=== PATIENT | male | born 1985 | race Caucasian/White ===

== ENCOUNTER 2019-06-04 05:37 | Emergency (ER) | payer OTHER, SELFPAY ==
--- NOTE | ~2019-06-04 | CT_ITS ---
EXAMINATION: CT abdomen pelvis wo con DATE: 06/04/2019 08:17 INDICATION: Generalized abdominal pain. TECHNIQUE: Computed tomography (CT) of the abdomen and pelvis was performed without intravenous contr ast. Automated exposure control and iterative reconstruction technique were employed. The dose-length product was 1264.82 mGy-cm. COMPARISON: CT abdomen and pelvis 07/04/2018 FINDINGS: The visualized portions of the lung bases demonstrate mild atelectasis. No pleural effusion . The heart size is normal. No pericardial effusion. There is diffuse hepatic steatosis. There are ch anges of cholecystectomy. The spleen, pancreas, adrenal glands, and kidneys are normal. There is a 7 mm stone at right ureteropelvic junction. There is a small right inguinal hernia containing fat. Ther e are no dilated loops of bowel. There are changes of appendectomy. There are no pathologically enlar ged lymph nodes. There is no free intraperitoneal fluid. There is mild thoracolumbar spondylosis. IMPRESSION: 1. 7 mm stone at right ureteropelvic junction. No hydronephrosis. 2. Diffuse hepatic steatosis. 3. Right inguinal hernia containing fat. Reviewed, dictated and finalized at location A.
--- NOTE | ~2019-06-04 | XR_ITS ---
XR abdomen/kub 1V 06/04/2019 11:08 Indication: Kidney stone. Procedure: KUB Comparison: 09/15/2016 Findings: Bowel gas pattern is nonobstructive pattern. There are cholecystectomy clips. There is a 1 cm right renal stone in the renal pelvis. No acute osseous abnormality. Impression: 1: 1 cm stone right renal pelvis near the expected location of the UPJ. Reviewed, dictated and finalized at location A. Impression: 1: 1 cm stone right renal pelvis near the expected location of the UPJ.
[2019-06-04 05:39] VITALS: BP 184/104; PULSE 68; RESP 18; TEMP 36.2; O2SAT 100
[2019-06-04] MEDS: SODIUM CHLORIDE 0.9% IV 1,000 ML 999 ML IV CONT ×2 (06:05→08:01)
[2019-06-04] MEDS: ONDANSETRON INJ 4 MG/2 ML VIAL IV PUSH (06:05)
--- NOTE | 2019-06-04 06:07 | ED.ABDPAIN ---
HPI - Abdominal Pain General Chief Complaint: Abdominal Pain Stated Complaint: abd pain n/v Time Seen by Provider: 06/04/19 06:01 Source: RN notes reviewed History of Present Illness HPI narrative: Patient presents to emergency department from home for nausea vomiting patient that symptoms began yesterday morning. Patient states numerous episodes of nausea vomiting yesterday. Also notes abdominal pain that is described as cramping and diffuse throughout the abdomen. Patient states he has a history of recurrent nausea and vomiting that is associated with anxiety. He states been unable to keep down his anxiety medicine over the past 24 hours. Denies any fevers or chills cough diarrhea or any other symptoms Related Data Home Medications Medication Instructions Recorded Confirmed clonidine HCl 0.1 mg PO HS 06/04/19 fluoxetine 80 mg PO HS 06/04/19 ranitidine HCl [Acid Corporate Treasurer 150 mg PO DAILY 06/04/19 (ranitidine)] Allergies Allergy/AdvReac Type Severity Reaction Status Date / Time Contrast Media Allergy Intermediate Swelling Uncoded 06/04/19 05:46 Review of Systems Review of Systems: Narrative: Gen.: Denies fevers or chills ENT: Denies congestion Respiratory: Denies shortness of breath or cough CV: Denies chest pain or palpitations GI: See HPI denies burning, urgency, frequency or hematuria Musculoskeletal: Denies back pain or muscle pain Neuro: Denies numbness, tingling, weakness or focal weakness Skin: Denies rash Except as documented, all other systems reviewed and negative [facility] Past Medical History Medical History (Updated 06/04/19 @ 11:54 by James Reyez DO) Anxiety Pancreatitis Social History Social History (Updated 06/04/19 @ 06:09 by James Reyez DO) Smoking status: Never smoker Gender identity (if verbalized by the patient): Male Exam Narrative: Exam Narrative: APPEARANCE: No acute distress, nontoxic, resting in bed HEENT: Normocephalic, atraumatic, OMM RESPIRATORY: No respiratory distress, clear to auscultation bilaterally with no rhonchi wheezing or rales CARDIOVASCULAR: RRR s murmur ABDOMINAL: Soft, nondistended, diffusely tender to palpation, no rebound or guarding MUSCULOSKELETAl: Moves all extremities. No clubbing, cyanosis or edema. NEURO: Awake and alert. Following commands, speech normal, no focal deficits SKIN:: Warm, dry. Normal Color PSYCHIATRIC: Normal affect/mood Course Course Emergency Course: Discussed with Dr. Rebollar presentation work-up. Discussed the kidney stone. At this time with the patient feeling better feels patient will be discharged with follow-up as an office was set up for lithotripsy Patient states that they are feeling much better at this time. States abdominal pain has resolved. Repeat abdominal exam shows the patient's abdomen to be soft and nontender. Discussed with patient results of workup and diagnosis. Discussed need for follow-up with primary care physician, reasons to return to the emergency department in proper use of medication. Patient understands and agrees to current treatment plan Vital Signs Vital signs: Vital Signs Temperature 97.1 F L 06/04/19 05:39 Pulse Rate 68 06/04/19 05:39 Respiratory Rate 18 06/04/19 05:39 Blood Pressure 184/104 H 06/04/19 05:39 Pulse Oximetry 100 06/04/19 05:39 Temperature 97.1 F L 06/04/19 05:39 Pulse Rate 67 06/04/19 09:45 Respiratory Rate 14 06/04/19 09:45 Blood Pressure 176/65 H 06/04/19 09:45 Pulse Oximetry 99 06/04/19 09:45 MDM - Abdominal Pain MDM Narrative Medical decision making narrative: Patient's abdomen is soft without significant pain or signs of surgical abdomen on serial exams. Lab and x-ray evaluations are reviewed and patient is felt to be a reasonable candidate for outpatient management. Patient was instructed as to limitations of x-ray and laboratory evaluation and encouraged to return to ED or primary physician for repeat exam in 12 hour
[2019-06-04 06:14] LABS: Basophils Absolute Auto 0.1 K/mm3 (0.0-0.1); Basophils Percent Auto 0.5 % (0.2-1.2); Eosinophils Absolute Auto 0.2 K/mm3 (0-0.3); Eosinophils Percent Auto 1.3 % (0-4.4); Hematocrit 50.4 % (42.0-52.0); Hemoglobin 17.4 g/dL (14.0-18.0); Immature Granulocyte Absolute 0.18 K/mm3 (0.00-0.031); Immature Granulocyte Percent A 1.2 % (0-0.5); Lymphocytes Absolute Auto 2.25 K/mm3 (0.9-3.2); Lymphocytes Percent Auto 14.7 % (18.3-44.2); Mean Corpuscular HGB Conc 34.5 g/dl (32-36); Mean Corpuscular Hemoglobin 29.8 pg (26-34); Mean Corpuscular Volume 86.3 fl (80-100); Mean Platelet Volume 11.1 fl (7.4-10.4); Monocytes Absolute Auto 0.9 K/mm3 (0.1-0.6); Monocytes Percent Auto 6.1 % (2.6-8.5); Neutrophils Absolute Auto 11.7 K/mm3 (1.3-6.7); Neutrophils Percent Auto 76.2 % (45.5-73.1); Platelet Count Result 217 k/mm3 (150-375); Red Blood Count 5.84 M/mm3 (4.6-6.20); Red Cell Distribution Width 13.4 % (11.5-14.5); White Blood Count 15.3 K/mm3 (4.5-10.0)
[2019-06-04 06:22] LABS: Alanine Aminotransferase 36 U/L (4-50); Albumin Level 4.9 g/dL (3.5-5.1); Alkaline Phosphatase 35 U/L (38-126); Aspartate Amino Transferase 31 U/L (17-59); Bilirubin,Total 0.5 mg/dL (0.2-1.3); Blood Urea Nitrogen 11 mg/dL (9-20); Calcium 9.6 mg/dL (8.4-10.2); Carbon Dioxide 24 mmol/L (22-30); Chloride 101 mmol/L (98-107); Estimated CRCL calculation 111 ml/min; Estimated Glomerular Filt Rate > 60; Glucose 144 mg/dL (75-110); Lipase 147 U/L (23-300); Sodium 137 mmol/L (137-145)
[2019-06-04] MEDS: LORAZEPAM INJ 2 MG/ML VIAL 1 MG IV PUSH (06:22)
[2019-06-04] MEDS: PANTOPRAZOLE SODIUM IV 40 MG VIAL IV PUSH (06:56)
[2019-06-04 07:18] LABS: Add Urine Microscopic? YES; Appearance Urine Clear (Clear); Bacteria Urine Trace /hpf; Bilirubin Urine Negative (Negative); Blood Urine 1+ (Negative); Color Urine Yellow (Yellow); Glucose Urine UA 1+ mg/dL (Negative); Ketones Urine 1+ mg/dL (Negative); Leukocyte Esterase Ur Negative LEU/UL (Negative); Nitrate Urine Negative (Negative); Protein Urine 2+ mg/dL (Negative); RBC Urine >75 /hpf (0-2); Specific Grav Ur 1.018 (1.001-1.035); Squamous Epithelial Cell Urine Rare /hpf (Few); WBC Urine 0-3 /hpf
[2019-06-04] MEDS: HYDROMORPHONE HCL 1 MG/ML INJ 0.5 MG IV PUSH (08:00)
[2019-06-04] MEDS: PROMETHAZINE HCL 25 MG/ML AMPUL 12.5 MG IV PUSH (09:40)
[2019-06-04 09:45] VITALS: BP 176/65; PULSE 67; RESP 14; O2SAT 99
[2019-06-04 12:10] VITALS: BP 155/70; PULSE 68; RESP 16; O2SAT 99
== END 2019-06-04 12:12 | disposition home or self-care (01) ==
PROVIDERS: Emergency Medicine; Emergency Provider Emergency Medicine; PCP Internal Medicine Infectious Disease
DX: R11.2 Nausea with vomiting, unspecified (principal); F41.9 Anxiety disorder, unspecified; R10.9 Unspecified abdominal pain; N20.0 Calculus of kidney; K76.0 Fatty (change of) liver, not elsewhere classified; K44.9 Diaphragmatic hernia without obstruction or gangrene
CPT/HCPCS: 36415; 74018; 74176; 80053; 81001; 83690; 85025; 87086; 96361; 96374; 96375; 99284; C9113; J0131; J1170; J2060; J2405; J2550; J7030

== ENCOUNTER 2020-06-22 21:44 | Observation (INO) | payer OTHER, SELFPAY ==
--- NOTE | ~2020-06-22 | XR_ITS ---
EXAMINATION: XR abdomen/kub 1V INDICATION: Right ureteral stone TECHNIQUE: Supine views of the abdomen were obtained on 2 radiographs. COMPARISON: 06/04/2019 FINDINGS: A 12 mm stone projects at the right ureteropelvic junction at the level of the right L3 tra nsverse process. Cholecystectomy clips are noted. The bowel gas pattern is normal. No additional urol ithiasis is identified. IMPRESSION: 1. 12 mm stone at the right ureteropelvic junction. Reviewed, dictated and finalized at location A.
--- NOTE | ~2020-06-22 | CT_ITS ---
EXAMINATION: CT abdomen pelvis wo con DATE: 06/22/2020 22:17 INDICATION: Epigastric abdominal pain TECHNIQUE: Computed tomography (CT) of the abdomen and pelvis was performed without intravenous contr ast. The dose-length product (DLP) was 06/04/2019 mGy-cm. Automated exposure control and iterative rec onstruction technique were employed. COMPARISON: 06/04/2019 FINDINGS: The lung bases are clear. The heart size is normal. The liver is diffusely low in attenuati on when compared with the spleen, consistent with hepatic steatosis. The gallbladder is surgically ab sent. The spleen, pancreas, and adrenal glands are normal. There is a 12 mm stone at the right ureter opelvic junction. The kidneys are unremarkable. No pathologically enlarged abdominal or pelvic lymph nodes are identified. There is no free intraperitoneal gas or evidence of bowel obstruction. The appe ndix is absent. The right testicle is seen in the distal inguinal canal. There is mild lumbar spondyl osis. IMPRESSION: 1. 12 mm stone at the right ureteropelvic junction. Consider KUB for treatment planning purposes. Reviewed, dictated and finalized at location A.
[2020-06-22 21:47] VITALS: BP 183/114; PULSE 74; RESP 17; TEMP 36.5; O2SAT 100
--- NOTE | 2020-06-22 21:49 | ED.ABDPAIN ---
HPI - Abdominal Pain General Chief Complaint: Abdominal Pain Stated Complaint: abd pain with n/v Time Seen by Provider: 06/22/20 21:49 History of Present Illness HPI narrative: Sharp epigastric pain since this morning. Sometimes radiates to the back. Associates with vomiting. He has had similar pain in the past which was attributed to anxiety. No diarrhea, constipation, fever, chest pain, SOB. Related Data Home Medications Medication Instructions Recorded Confirmed clonidine HCl 0.1 mg PO HS 06/04/19 fluoxetine 80 mg PO HS 06/04/19 ranitidine HCl [Acid Disk Operator 150 mg PO DAILY 06/04/19 (ranitidine)] Allergies Allergy/AdvReac Type Severity Reaction Status Date / Time Contrast Media Allergy Intermediate Swelling Uncoded 06/04/19 05:46 Review of Systems Review of Systems: All systems reviewed & are unremarkable except as noted in HPI and below Constitutional: Constitutional: Denies chills and Denies fever(s) ENT: Reports system reviewed and no additional complaints, except as documented Cardiovascular: Cardiovascular: Denies chest pain Respiratory: Respiratory: Reports dyspnea Gastrointestinal: Gastrointestinal: Reports abdominal pain, Denies constipation, Denies diarrhea, Reports nausea and Reports vomiting Musculoskeletal: Musculoskeletal: Reports back pain Neurologic: Reports system reviewed and no additional complaints, except as documented [facility] Past Medical History Medical History Anxiety Pancreatitis Social History Social History Smoking status: Never smoker Gender identity (if verbalized by the patient): Male Exam Const: General: alert Nutritional Appearance: obese Orientation/consciousness: patient oriented x3 Other: diaphoretic HENMT: Head: normal to inspection Neck: Neck: normal visual inspection Chest: Chest palpation & inspection: normal inspection of the chest Resp: Effort & Inspection: normal respiratory effort Auscultation: clear to auscultation bilaterally Cardio: Rate: regular rate Rhythm: regular rhythm GI: Inspection: non-distended GI Palp: Yes Tenderness to palpation present (GI) (epigastric), No Guarding due to palpation present (GI) and No Rebound tenderness present Skin: General skin exam: normal color Other: diaphoretic Neuro: General: patient oriented x3, moves all extremities, no focal motor deficits and CN's II-XI intact bilaterally Speech: normal speech Extrem: General: normal to inspection Course Vital Signs Vital signs: Vital Signs Temperature 36.5 C 06/22/20 21:47 Pulse Rate 74 06/22/20 21:47 Respiratory Rate 17 06/22/20 21:47 Blood Pressure 183/114 H 06/22/20 21:47 Pulse Oximetry 100 06/22/20 21:47 Temperature 36.5 C 06/22/20 21:47 Pulse Rate 67 06/22/20 22:54 Respiratory Rate 25 H 06/22/20 22:54 Blood Pressure 183/111 H 06/22/20 22:54 Pulse Oximetry 100 06/22/20 22:54 MDM - Abdominal Pain MDM Narrative Medical decision making narrative: Large proximal stone. Discussed with Dr. Pichardo. He recommends admission to the hospitalist and he will plan to place a stent in the morning. Differential Diagnosis Differential diagnosis: Likely calculus of kidney, constipation, gastroenteritis, pancreatitis and small bowel obstruction Medical Records Attestation: I reviewed the patient's medical records. Lab Data Attestation: I reviewed the patient's lab results. Result diagrams: 06/22/20 22:36 06/22/20 22:36 Labs: Lab Results 06/22/20 06/22/20 06/22/20 Range/Units 22:36 22:36 22:36 WBC 16.2 H (4.5-10.0) K/mm3 RBC 5.82 (4.6-6.20) M/mm3 Hgb 17.7 (14.0-18.0) g/dL Hct 51.5 (42.0-52.0) % MCV 88.5 (80-100) fl MCH 30.4 (26-34) pg MCHC 34.4 (32-36) g/dl RDW 13.4 (11.5-14.5) % Plt Count 235 (150-375) k/mm3 MPV 10.6 H
[2020-06-22] MEDS: DICYCLOMINE HCL INJ 20 MG/2 ML VIAL IM (22:11)
[2020-06-22] MEDS: SODIUM CHLORIDE 0.9% IV 1,000 ML 999 ML IV CONT (22:11)
[2020-06-22] MEDS: PANTOPRAZOLE SODIUM IV 40 MG VIAL IV PUSH (22:11)
[2020-06-22] MEDS: ONDANSETRON INJ 4 MG/2 ML VIAL IV PUSH (22:11)
--- NOTE | 2020-06-22 22:13 | PC.NURSE ---
Pt to CT scan via stretcher, at bedside updated.
[2020-06-22 22:42] LABS: Basophils Absolute Auto 0.1 K/mm3 (0.0-0.1); Basophils Percent Auto 0.3 % (0.2-1.2); Eosinophils Absolute Auto 0.1 K/mm3 (0-0.3); Eosinophils Percent Auto 0.4 % (0-4.4); Hematocrit 51.5 % (42.0-52.0); Hemoglobin 17.7 g/dL (14.0-18.0); Immature Granulocyte Absolute 0.12 K/mm3 (0.00-0.031); Immature Granulocyte Percent A 0.7 % (0-0.5); Lymphocytes Absolute Auto 1.98 K/mm3 (0.9-3.2); Lymphocytes Percent Auto 12.2 % (18.3-44.2); Mean Corpuscular HGB Conc 34.4 g/dl (32-36); Mean Corpuscular Hemoglobin 30.4 pg (26-34); Mean Corpuscular Volume 88.5 fl (80-100); Mean Platelet Volume 10.6 fl (7.4-10.4); Monocytes Absolute Auto 0.9 K/mm3 (0.1-0.6); Monocytes Percent Auto 5.6 % (2.6-8.5); Neutrophils Absolute Auto 13.1 K/mm3 (1.3-6.7); Neutrophils Percent Auto 80.8 % (45.5-73.1); Platelet Count Result 235 k/mm3 (150-375); Red Blood Count 5.82 M/mm3 (4.6-6.20); Red Cell Distribution Width 13.4 % (11.5-14.5); White Blood Count 16.2 K/mm3 (4.5-10.0)
[2020-06-22 22:48] LABS: Add Urine Microscopic? YES; Amorphous Sediment Urine Moderate; Appearance Urine Cloudy (Clear); Bacteria Urine Trace /hpf; Bilirubin Urine Negative (Negative); Blood Urine Negative (Negative); Color Urine Yellow (Yellow); Glucose Urine UA Negative (Negative); Ketones Urine 1+ mg/dL (Negative); Leukocyte Esterase Ur Negative LEU/UL (Negative); Nitrate Urine Negative (Negative); Protein Urine 2+ mg/dL (Negative); RBC Urine 0-2 /hpf (0-2); Specific Grav Ur 1.016 (1.001-1.035); Squamous Epithelial Cell Urine Rare /hpf (Few); WBC Urine 0-3 /hpf
[2020-06-22] MEDS: LORazepam INJ (*CRX) 2 MG/ML VIAL 1 MG IV PUSH (22:53)
[2020-06-22 22:54] VITALS: BP 183/111; PULSE 67; RESP 25; O2SAT 100
[2020-06-22 22:55] LABS: Alanine Aminotransferase 48 U/L (4-50); Albumin Level 5.1 g/dL (3.5-5.1); Alkaline Phosphatase 29 U/L (38-126); Anion Gap 9 mmol/L (8-16); Aspartate Amino Transferase 29 U/L (17-59); Bilirubin,Total 0.4 mg/dL (0.2-1.3); Blood Urea Nitrogen 11 mg/dL (9-20); Calcium 10.7 mg/dL (8.4-10.2); Carbon Dioxide 28 mmol/L (22-30); Chloride 103 mmol/L (98-107); Estimated CRCL calculation 109 ml/min; Estimated Glomerular Filt Rate > 60; Glucose 141 mg/dL (75-110); Lipase 316 U/L (23-300); Potassium 4.5 mmol/L (3.4-5.0); Sodium 140 mmol/L (137-145)
[2020-06-22] MEDS: cloNIDine 0.1 MG/24 HR PATCH 1 PATCH TRANSDERM (23:19)
[2020-06-22] MEDS: MORPHINE SULFATE (*CRX) 4 MG/ML INJ IV PUSH (23:19)
[2020-06-22 23:35] VITALS: BP 176/130; PULSE 71; RESP 16; O2SAT 100
--- NOTE | 2020-06-23 00:10 | PM.IMHP ---
H&P: HPI History of Present Illness Date/Time: 06/22/20 23: 40 Chief Complaint: abdominal pain Narrative: 34 yo male who present with sudden onset abdominal pain which is present in periumbilical area and associated nausea and vmotign, severeal episdoes since this afternon today. he has had similar pains in the past. he has hx of cholecystectomy, appendectomy. he also has hx of hypertensio and is on clonidine however has not been able to take it because of his nausea, vomting. inspite of taking medications, his blood pressure are also never under control. upon evaluation in the ed, he was noted to have 12 mm stone at right ureteroplevic junction. CT abdomen reveals the same along wtih hepatic steatosis. he has prior episdoes of gastritis and pancreatitis in [facility]. he does have elevated wbc count, with elevated calicum level and protein, olipase leevel is midly elevated as well. Review of Systems Review of Systems: Narrative: - CONSTITUTIONAL: Denies weight loss, fever and chills. - HEENT: Denies changes in vision and hearing - RESPIRATORY: Denies SOB and cough. - CV: Denies palpitations and CP. - GI: reports abdominal pain, nausea, vomiting and denies diarrhea. - : Denies dysuria and urinary frequency. - MSK: Denies myalgia and joint pain. - SKIN: Denies rash and pruritus. - NEUROLOGICAL: Denies headache and syncope. - PSYCHIATRIC: Denies recent changes in mood. Denies anxiety and depression. All systems reviewed & are unremarkable except as noted in HPI and below PMFSH Past Medical History Medical History Anxiety Pancreatitis Social History Social History Smoking status: Never smoker Gender identity (if verbalized by the patient): Male Meds Home Medications and Allergies Home Medications Medication Instructions Recorded Confirmed Type clonidine HCl 0.1 mg PO HS 06/04/19 History famotidine [Pepcid] 20 mg PO DAILY #14 tablet 06/04/19 Rx fluoxetine 80 mg PO HS 06/04/19 History ondansetron 4 mg PO Q6H PRN #10 tablet 06/04/19 Rx ranitidine HCl [Acid Insole Buffer 150 mg PO DAILY 06/04/19 History (ranitidine)] Allergies Allergy/AdvReac Type Severity Reaction Status Date / Time Contrast Media Allergy Intermediate Swelling Uncoded 06/04/19 05:46 Vital Signs Vital Signs - 24 hr 06/22/20 21:47 06/22/20 22:54 06/22/20 23:35 Temperature 97.7 F Pulse Rate 74 67 71 Respiratory Rate 17 25 H 16 Blood Pressure 183/114 H 183/111 H 176/130 H Pulse Oximetry 100 100 100 Exam Narrative: Exam Narrative: GENERAL: The patient is well developed, in mild distress HEENT: Nonicteric sclerae, PERRLA, EOMI. Oropharynx clear. Moist mucous membranes. Conjunctivae appear well perfused. CHEST: Chest wall is nontender. HEART: Regular rate and rhythm without murmur, rubs, or gallops LUNGS: Clear to auscultation bilaterally. no respiratory distress ABDOMEN: Soft, positive bowel sounds,tender periumbilcial area, mildy tender diffuselyr, no organomegaly. SKIN: No rash, no excessive bruising, petechiae, or purpura. NEUROLOGIC: Cranial nerves II-XII intact, alert and oriented x 3, no gross motor deficits EXTREMITIES: no edema, cyanosis or clubbing H&P: Results Labs Labs: Short CBC 06/22/20 Range/Units 22:36 WBC 16.2 H (4.5-10.0) K/mm3 Hgb 17.7 (14.0-18.0) g/dL Hct 51.5 (42.0-52.0) % Plt Count 235 (150-375) k/mm3 BMP 06/22/20 22:36 Sodium 140 Potassium 4.5 Chloride 103 Carbon Dioxide 28 BUN 11 Creatinine 1.00 Glucose 141 H Calcium 10.7 H Liver Function 06/22/20 Range/Units 22:36 Total Bilirubin 0.4 (0.2-1.3) mg/dL AST 29 (17-59) U/L ALT 48 (4-50) U/L Alkaline Phosphatase 29 L (38-126) U/L Albumin 5.1 (3.5-5.1) g/dL Urine 06/22/20 Range/Units 22:36 Urine Color Yellow (Yellow) Urine Appearance Cloudy H (Cl
[2020-06-23 00:20] VITALS: BP 172/98; PULSE 66; RESP 18; TEMP 36.3; O2SAT 97; BMI 34.9
[2020-06-23 00:44] VITALS: BMI 35.0
--- NOTE | 2020-06-23 00:48 | ADMGEN ---
This patient, Brodie Torres, was admitted to 3 [facility] Surg Room 300-01. Patient/family oriented to hospital policies and general routines including ID bracelet, bed and alarms, visiting hours, pain management, procedures, bathroom and other care routines, personal items, smoking policy, room service/diet, and visiting hours. Information on how to activate the Rapid Response Team has been discussed. Patient/Family are encouraged to report perceived risks to care and to ask questions if they do not understand what they are told or what they should do.
[2020-06-23] MEDS: ONDANSETRON INJ 4 MG/2 ML VIAL IV PUSH (01:01)
[2020-06-23] MEDS: LACTATED RINGERS 1,000 ML 150 ML IV CONT ×2 (01:35→10:52)
[2020-06-23 05:28] VITALS: BP 138/89; PULSE 81; RESP 18; TEMP 36.8; O2SAT 97
[2020-06-23] MEDS: MORPHINE SULFATE (*CRX) 4 MG/ML INJ IV PUSH (05:34)
[2020-06-23] MEDS: PANTOPRAZOLE SODIUM IV 40 MG VIAL IV PUSH (08:08)
[2020-06-23] MEDS: cloNIDine 0.2 MG/24 HR PATCH 1 PATCH TRANSDERM (08:08)
--- NOTE | 2020-06-23 08:53 | WPDURCON ---
Assessment and Plan Assessment and plan (1) Right ureteral stone: Code(s): N20.1 - Calculus of ureter Status: Acute Assessment and Plan: The patient unfortunately has Medicaid insurance, therefore an outpatient lithotripsy isn't covered at [facility] or at [facility]. We have offered to place a stent in the right ureter for pain control, but the patient refuses and states his pain is managed with pain medications. We have agreed to have him follow up at [facility] where his insurance will be accepted and they can address his stone. No further evaluation at this time. Urology Consult Note HPI Date Seen: 06/23/20 Requesting Physician: Heike Tobias PA-C Primary Care Provider: Lizz OrdonezLyndon Consult Narrative Narrative: Brodie Torres is a 34 year old male who presented to the ER last night with bilateral flank pain that has been present for one month but worsening over the past few days. He also c/o pelvic pressure, urgency, frequency, dysuria and hematuria. He has a known large right renal stone that has been there for many years but hasn't given him any problems until now. He has never had any stone surgeries before and no other significant urologic history. He was at [facility] a month ago and was treated for a UTI and told to follow up with a Urologist upon discharge but hadn't. His WBC is elevated at 16.2, creatinine 1.00, UA isn't significant for a UTI at this time, urine culture from 06/03/[address] abdomen/pelvis shows a 12mm right UPJ stone, KUB is positive. Review of Systems Respiratory: Respiratory: Denies no additional respiratory complaints Gastrointestinal: Gastrointestinal: Reports abdominal pain, Reports nausea and Denies vomiting Genitourinary: Genitourinary: Reports hematuria, Reports dysuria, Reports flank pain, Denies testicular pain, Reports urinary frequency and Reports urinary urgency PMF Past Medical History Medical History Anxiety Pancreatitis Social History Social History Smoking status: Never smoker Alcohol intake: former Substance use: current Substance use type: marijuana Gender identity (if verbalized by the patient): Male Spiritual care concerns: No Meds Home Medications and Allergies Home Medications Medication Instructions Recorded Confirmed Type clonidine HCl 0.1 mg PO BID 06/04/19 06/23/20 History famotidine [Pepcid] 20 mg PO DAILY #14 tablet 06/04/19 06/23/20 Rx fluoxetine [Prozac] 80 mg PO AC 06/04/19 06/23/20 History hydrocodone-acetaminophen 1 tablet PO Q6H PRN #16 tablet 06/23/20 Rx ondansetron 4 mg PO PRN PRN 06/23/20 06/23/20 History Allergies Allergy/AdvReac Type Severity Reaction Status Date / Time Contrast Media Allergy Intermediate Swelling Uncoded 06/04/19 05:46 Vital Signs Vital Signs - 24 hr 06/22/20 21:47 06/22/20 22:54 06/22/20 23:35 Temperature 97.7 F Pulse Rate 74 67 71 Respiratory Rate 17 25 H 16 Blood Pressure 183/114 H 183/111 H 176/130 H Pulse Oximetry 100 100 100 06/23/20 00:20 06/23/20 05:28 Temperature 97.4 F L 98.2 F Pulse Rate 66 81 Respiratory Rate 18 18 Blood Pressure 172/98 H 138/89 Pulse Oximetry 97 97 Exam Resp: Effort & Inspection: normal respiratory effort Cardio: Rate: regular rate GI: GI Palp: Yes Soft to palpation and No Tenderness to palpation present (GI) : General: Yes CVA tenderness bilateral Extrem: General: no edema Results Labs CBC & Chem 7: 06/22/20 22:36 06/22/20 22:36 Labs: Short CBC 06/22/20 Range/Units 22:36 WBC 16.2 H (4.5-10.0) K/mm3 Hgb 17.7 (14.0-18.0) g/dL Hct 51.5 (42.0-52.0) % Plt Count 235 (150-375) k/mm3 BMP 06/22/20 22:36 Sodium 140 Potassium 4.5 Chloride 103 Carbon Dioxide 28 BUN 11 Creatinine 1.00 Glucose 141 H Calcium
[2020-06-23 09:24] VITALS: O2SAT 97
[2020-06-23] MEDS: FLUoxetine HCL 20 MG CAPSULE 80 MG PO (11:27)
--- NOTE | 2020-06-23 11:45 | PM.DS ---
DS: Admitting Diagnosis Admitting Diagnosis Admitting Diagnosis: renal stone DS: Discharge Diagnosis Discharge Diagnosis (1) Right ureteral stone: Code(s): N20.1 - Calculus of ureter Status: Acute (2) Rebound hypertension: Code(s): I15.8 - Other secondary hypertension Status: Acute (3) Anxiety: Code(s): F41.9 - Anxiety disorder, unspecified Status: Acute DS: Summary Hospital Course Hospital Course: Patient is a 34-year-old male who presented emergency room for significant abdominal/flank pain along with nausea who was found to have a 12 mm at the right ureteropelvic junction. Temperature 36.5?, pulse 74, respiratory rate 17, blood pressure 183/114, pulse ox 100 on room air. Initial white blood cell count 16.2, hemoglobin hematocrit normal, platelets normal. BMP within normal limits with exception of random glucose 141. UA negative for infection and without blood. Patient was admitted to the hospitalist service and observed. His pain improved with pain medications. His lipase was mildly elevated likely due to vomiting, no signs of pancreatitis on CT. He saw urology who recommended lithotripsy as well as a stent. However, the patient is unable to have a lithotripsy here so he is referred to [facility] who can help him with this. Patient did not want to undergo a stent at this time as his pain was better. His CT also showed The right testicle in the distal inguinal canal. Patient was unaware of this and states he has no pain in the area. He is going to talk to the urologist at [place] when he goes for the lithotripsy about this. He understands the risk of not fixing it which can include caner. Patient states he has chronic anxiety that he battles with and is not happy with his primary care physician. He also sees [facility] for his [facility]. I explained to him that [facility] has primary care services and to follow up with their office if he would like to switch. I gave her Dr. Yadav's info. His pontine pill was changed to a patch and his blood pressure was 138/89 at discharge. he also had a leukocytosis which I believe is reactionary but on review, it looks like he has a history of leukocytosis and this should be re-evaluated when he has improved. His calcium was also slightly high which I think is due to dehydration but this should also be rechecked as elevated calcium could be the cause of his stone. I also talked to the patient about his hepatic steatosis and recommended weight loss. The day of discharge the patient was feeling a lot better and his pain was under control. We discussed pain medications and how to safely take these. Pt was educated about the worrisome signs and symptoms come back to emergency room for and was discharged stable condition. Status at Discharge Functional status at discharge: independent ambulation Overall status at discharge: patient is progressing back to baseline Time Spent with Patient Time attestation: Total time spent providing and/or coordinating discharge services:34 min Time spent: Greater than 30 minutes Exam Narrative: Exam Narrative: General: Well developed well nourished patient in NAD HEENT: normocephalic Neck: supple Neuro: Alert and oriented x 4 CV:RRR Resp:CTA Abd: Soft, non distended. No pain to palpation. Positive bowel sounds. Some 'soreness' with CVA tenderness but no significant tenderness to palpation Extremities: No swelling, erythema, or pain to palpation. DS: Data Data Completed and Pending Labs on day of discharge: Labs from last 24 hours 06/22/20 06/22/20 06/22/20 22:36 22:36 22:36 WBC 16.2 H RBC 5.82 Hgb 17.7 Hct 51.5 MCV 88.5 MCH 30.4 MCHC 34.4 RDW 13.4 Plt Count 235 MPV 10.6 H Immature Gran % (Auto) 0.7 H Neut % (Auto) 80.8 H Lymph % (Auto) 12.2 L Crockett % (Auto) 5.6 Eos % (Auto) 0.4 Baso % (Auto) 0.3 Lymph # (Auto) 1.98 [place]ckett # (Auto) 0.9 H Eos # (Auto)
== END 2020-06-23 14:00 | disposition home or self-care (01) ==
LOC: ANHED 23:39 → ANH3MEDSUR 06-23 06:50
PROVIDERS: Admitting Provider Internal Medicine; Emergency Provider Emergency Medicine; PCP Internal Medicine Infectious Disease; Visit Provider Physician Assistant
DX: N20.1 Calculus of ureter (principal); F41.9 Anxiety disorder, unspecified; I10 Essential (primary) hypertension; K76.0 Fatty (change of) liver, not elsewhere classified
CPT/HCPCS: 36415; 74018; 74176; 80053; 81001; 83690; 85025; 96361; 96372; 96374; 96375; 99285; A9270; C9113; G0378; G0379; J0500; J2060; J2270; J2405; J7030; J7120

== ENCOUNTER 2020-08-06 03:42 | Emergency (ER) | payer OTHER, SELFPAY ==
--- NOTE | ~2020-08-06 | XR_ITS ---
EXAMINATION: XR abdomen/kub 1V DATE: 08/06/2020 04:22 INDICATION: Right flank pain TECHNIQUE: A supine view of the abdomen on 2 radiographs was obtained. COMPARISON: 06/22/2020 FINDINGS: Unchanged 8 mm stone at the right ureteropelvic junction. No other urolithiasis. Normal bowel gas pat tern. Cholecystectomy clips in right upper quadrant. Bones are unremarkable. IMPRESSION: 1. 8 mm stone at the right ureteropelvic junction. Reviewed, dictated and finalized at location A.
[2020-08-06 03:43] VITALS: BP 176/111; RESP 81; TEMP 36.7; O2SAT 96
--- NOTE | 2020-08-06 04:06 | ED.GENADULT ---
HPI - General Adult General Chief complaint: Nausea/Vomiting/Diarrhea Stated complaint: n/v Time Seen by Provider: 08/06/20 03:47 Source: patient and RN notes reviewed Mode of arrival: EMS Limitations: no limitations History of Present Illness HPI narrative: This is a 34 year old male with history of anxiety and kidney stone who presents for evaluation of right flank pain with nausea and vomiting. Patient was diagnosed with a large right proximal ureteral stone in May and June 2020. He reports that 2 weeks ago urology attempted to perform surgery at [facility] but he woke up during anesthesia. He has been taking Tylenol for pain . He states his pain has gotten worse and he has been vomiting. He denies fever or chills. Location: right (flank) Related Data Home Medications Medication Instructions Recorded Confirmed fluoxetine [Prozac] 80 mg PO AC 06/04/19 06/23/20 ondansetron 4 mg PO PRN PRN 06/23/20 06/23/20 Allergies Allergy/AdvReac Type Severity Reaction Status Date / Time Contrast Media Allergy Intermediate Swelling Uncoded 06/04/19 05:46 Review of Systems Review of Systems: All systems reviewed & are unremarkable except as noted in HPI and below Constitutional: Constitutional: Denies chills and Denies fever(s) Gastrointestinal: Gastrointestinal: Reports abdominal pain, Reports nausea and Reports vomiting Musculoskeletal: Musculoskeletal: Reports back pain PMFSH Past Medical History Medical History (Updated 08/06/20 @ 05:41 by Leslee Finney MD) Anxiety Kidney stone Pancreatitis Social History Social History Smoking status: Never smoker Alcohol intake: former Substance use: current Substance use type: marijuana Gender identity (if verbalized by the patient): Male Spiritual care concerns: No Exam Const: General: no acute distress and alert Orientation/consciousness: patient oriented x3 Eyes: EOM: EOMs intact bilaterally Resp: Effort & Inspection: normal respiratory effort and no retractions Auscultation: clear to auscultation bilaterally Cardio: Rate: regular rate Rhythm: regular rhythm Heart sounds: no murmurs GI: GI Palp: Yes Soft to palpation, No Tenderness to palpation present (GI) and No Guarding due to palpation present (GI) Auscultation: normal bowel sounds : General: Yes CVA tenderness on the right Neuro: General: patient oriented x3, moves all extremities and CN's II-XI intact bilaterally Psych: Mental Status: mental status grossly normal Affect: normal affect Course Reevaluation(s) Reevaluation #1: PAtient states he feels better. He still has pain but he feels better. I discussed that his stone has not changed position. He has normal Cr. and afebrile. I discussed option of getting stent but he states I can't handle it . He is agreeable to follow up as outpatient. Date: 08/06/20 Time: 05:36 Consultations Consultation #1: I spoke with DR. Rios about patient case and insurance issue noted in chart. HE agrees if patient does not want stent he can follow up as outpatient. Date: 08/06/20 Time: 05:37 Vital Signs Vital signs: Vital Signs Temperature 98.0 F 08/06/20 03:43 Respiratory Rate 81 H 08/06/20 03:43 Blood Pressure 176/111 H 08/06/20 03:43 Pulse Oximetry 96 08/06/20 03:43 Temperature 98.1 F 08/06/20 06:08 Pulse Rate 86 08/06/20 06:08 Respiratory Rate 16 08/06/20 06:08 Blood Pressure 128/94 H 08/06/20 06:08 Pulse Oximetry 99 08/06/20 06:08 Medical Decision Making Vital Signs Vital Signs: Vital Signs Temperature 98.0 F 08/06/20 03:43 Respiratory Rate 81 H 08/06/20 03:43 Blood Pressure 176/111 H 08/06/20 03:43 Pulse Oximetry 96 08/06/20 03:43 Temperature 98.1 F 08/06/20 06:08 Pulse Rate 86 08/06/20 06:08 Respiratory Rate 16 08/06/20 06:08 Blood Pressure 128/94 H 08/06/20 06:08 Pulse Oximetry 99 08/06/20 06:08
[2020-08-06] MEDS: HYDROmorphone HCL INJ (*CRX) 1 MG/ML SYR IV PUSH (04:08)
[2020-08-06] MEDS: ONDANSETRON INJ 4 MG/2 ML VIAL IV PUSH (04:08)
[2020-08-06] MEDS: LACTATED RINGERS 1,000 ML 999 ML IV CONT (04:08)
[2020-08-06 04:16] LABS: Basophils Percent Auto 0.2 % (0.2-1.2); Eosinophils Absolute Auto 0.1 K/mm3 (0-0.3); Eosinophils Percent Auto 0.4 % (0-4.4); Hematocrit 48.6 % (42.0-52.0); Hemoglobin 17.2 g/dL (14.0-18.0); Immature Granulocyte Absolute 0.06 K/mm3 (0.00-0.031); Immature Granulocyte Percent A 0.4 % (0-0.5); Lymphocytes Absolute Auto 1.41 K/mm3 (0.9-3.2); Lymphocytes Percent Auto 9.5 % (18.3-44.2); Mean Corpuscular HGB Conc 35.4 g/dl (32-36); Mean Corpuscular Hemoglobin 30.5 pg (26-34); Mean Corpuscular Volume 86.2 fl (80-100); Mean Platelet Volume 10.6 fl (7.4-10.4); Monocytes Absolute Auto 0.8 K/mm3 (0.1-0.6); Monocytes Percent Auto 5.5 % (2.6-8.5); Neutrophils Absolute Auto 12.5 K/mm3 (1.3-6.7); Platelet Count Result 225 k/mm3 (150-375); Red Blood Count 5.64 M/mm3 (4.6-6.20); Red Cell Distribution Width 13.1 % (11.5-14.5); White Blood Count 14.9 K/mm3 (4.5-10.0)
[2020-08-06 04:31] LABS: Alanine Aminotransferase 46 U/L (4-50); Albumin Level 4.8 g/dL (3.5-5.1); Alkaline Phosphatase 27 U/L (38-126); Anion Gap 13 mmol/L (8-16); Aspartate Amino Transferase 40 U/L (17-59); Bilirubin,Total 0.8 mg/dL (0.2-1.3); Blood Urea Nitrogen 15 mg/dL (9-20); Calcium 9.9 mg/dL (8.4-10.2); Carbon Dioxide 21 mmol/L (22-30); Chloride 106 mmol/L (98-107); Estimated CRCL calculation 132 ml/min; Estimated Glomerular Filt Rate > 60; Glucose 136 mg/dL (75-110); Lipase 114 U/L (23-300); Potassium 3.9 mmol/L (3.4-5.0); Sodium 140 mmol/L (137-145)
[2020-08-06] MEDS: cloNIDine HCL 0.1 MG TABLET PO (04:47)
[2020-08-06 04:49] LABS: Add Urine Microscopic? YES; Appearance Urine Cloudy (Clear); Bacteria Urine Trace /hpf; Bilirubin Urine Negative (Negative); Blood Urine 1+ (Negative); Color Urine Amber (Yellow); Glucose Urine UA Negative (Negative); Ketones Urine 1+ mg/dL (Negative); Leukocyte Esterase Ur Trace LEU/UL (Negative); Mucus Urine Rare /lpf; Nitrate Urine Negative (Negative); Protein Urine 2+ mg/dL (Negative); Specific Grav Ur 1.023 (1.001-1.035); WBC Urine 16-20 /hpf
[2020-08-06 06:08] VITALS: BP 128/94; PULSE 86; RESP 16; TEMP 36.7; O2SAT 99
== END 2020-08-06 06:09 | disposition home or self-care (01) ==
PROVIDERS: Emergency Provider General Practice
DX: N20.1 Calculus of ureter (principal); D72.829 Elevated white blood cell count, unspecified; F41.9 Anxiety disorder, unspecified; Z87.442 Personal history of urinary calculi
CPT/HCPCS: 36415; 74018; 80053; 81001; 83690; 85025; 87086; 96361; 96374; 96375; 99284; A9270; J1170; J2405; J7120

== ENCOUNTER 2021-01-13 09:50 | Emergency (ER) | payer OTHER, SELFPAY ==
[2021-01-13 10:09] VITALS: BP 152/112; PULSE 72; RESP 16; TEMP 35.7; O2SAT 100
--- NOTE | 2021-01-13 10:35 | PC.NURSE ---
Patient stopped by the desk at this time and informed this nurse he wished to go to another facility d/t the wait. Patient had IV in place from EMS prior to arrival. This was removed by ZUHAIR Bettencourt. Patient ambulated from ED. Patient alert and oriented at time of departure. Nothing further to report.
== END 2021-01-13 10:09 | disposition left against medical advice (07) ==
LOC: ANHED 11:14
DX: Z53.21 Procedure and treatment not carried out due to patient leaving prior to being seen by health care provider (principal)
CPT/HCPCS: 99199

== ENCOUNTER 2021-01-15 16:49 | Emergency (ER) | payer OTHER, SELFPAY ==
--- NOTE | ~2021-01-15 | CT_ITS ---
EXAMINATION: CT abdomen pelvis wo con EXAM DATE: 01/15/2021 17:48 INDICATION: Abdominal pain. Contrast allergy. History pancreatitis, kidney stones. TECHNIQUE: Spiral CT of the abdomen and pelvis was performed without contrast. Axial, coronal and sag ittal images were reviewed. The dose-length product (DLP) for this examination was 1150.99 mGy-cm. The exposure was tailored according to patient size (auto mA exposure control), and iterative reconst ruction (ASIR) was used as additional dose reduction technique. Comparison is made to prior examinati on from 06/22/2020. FINDINGS: There is stone in the right renal pelvis, was present on prior study. No caliectasis. Measu res up to 10 mm in size. The prostate is unremarkable. The bladder is unremarkable. There is hepat ic steatosis without suspicious focal lesion identified. Spleen, adrenal glands, pancreas are unremar kable. There are cholecystectomy clips. There is no retroperitoneal or pelvic lymphadenopathy. There are surgical changes consistent with appendectomy. The stomach and small bowel are unremarkab le. There is expected amount of colonic stool. No free intraperitoneal gas. The heart is normal in size. There are no pericardial or pleural effusions. The lung bases are unremarkable. There are no osteoblastic or osteolytic lesions identified. IMPRESSION: Chronic right renal pelvic 1 cm stone, no hydronephrosis at present. Hepatic steatosis. Reviewed, dictated and finalized at location A. R GLUING OPERATOR IMPRESSION: Chronic right renal pelvic 1 cm stone, no hydronephrosis at present . Hepatic steatosis.
[2021-01-15 16:52] VITALS: BP 211/107; PULSE 67; RESP 19; TEMP 36.3; O2SAT 97
[2021-01-15 17:03] LABS: Basophils Percent Auto 0.3 % (0.2-1.2); Eosinophils Absolute Auto 0.1 K/mm3 (0-0.3); Eosinophils Percent Auto 0.5 % (0-4.4); Hematocrit 48.8 % (42.0-52.0); Hemoglobin 17.1 g/dL (14.0-18.0); Immature Granulocyte Absolute 0.05 K/mm3 (0.00-0.031); Immature Granulocyte Percent A 0.4 % (0-0.5); Lymphocytes Absolute Auto 1.65 K/mm3 (0.9-3.2); Lymphocytes Percent Auto 13.9 % (18.3-44.2); Mean Corpuscular Hemoglobin 30.7 pg (26-34); Mean Corpuscular Volume 87.6 fl (80-100); Monocytes Absolute Auto 0.8 K/mm3 (0.1-0.6); Monocytes Percent Auto 6.4 % (2.6-8.5); Neutrophils Absolute Auto 9.3 K/mm3 (1.3-6.7); Neutrophils Percent Auto 78.5 % (45.5-73.1); Platelet Count Result 209 k/mm3 (150-375); Red Blood Count 5.57 M/mm3 (4.6-6.20); Red Cell Distribution Width 13.7 % (11.5-14.5); White Blood Count 11.9 K/mm3 (4.5-10.0)
--- NOTE | 2021-01-15 17:09 | ED.ABDPAIN ---
HPI - Abdominal Pain General Chief Complaint: Abdominal Pain Stated Complaint: abd pain Source: patient Mode of arrival: ambulatory Limitations: no limitations History of Present Illness HPI narrative: Patient presents with mid abdominal pain, sharp, aching for the last 4 days associated with a lot of vomiting. Patient denies any fever, chills patient denies aggravating or relieving factors. Patient had similar symptoms secondary to PTSD and anxiety. History of depression, hypertension, smoking, marijuana user. Patient reports a lot of stress lately Related Data Home Medications Medication Instructions Recorded Confirmed fluoxetine [Prozac] 80 mg PO AC 06/04/19 06/23/20 ondansetron 4 mg PO PRN PRN 06/23/20 06/23/20 Allergies Allergy/AdvReac Type Severity Reaction Status Date / Time Contrast Media Allergy Intermediate Swelling Uncoded 06/04/19 05:46 Review of Systems Review of Systems: CONSTITUTIONAL: Denies fever, chills, or sweats. EYES: Denies visual changes, redness, or discharge. ENT: Denies rhinorrhea, congestion, sore throat, or otalgia. CARDIOVASCULAR: Denies chest pain, palpitations, or edema. RESPIRATORY: Denies cough or dyspnea. GASTROINTESTINAL: Abdominal pain with vomiting GENITOURINARY: Denies dysuria or hematuria. SKIN: Denies rash or itching. MUSCULOSKELETAL: Denies back pain, joint pain, or myalgia. NEUROLOGIC: Denies headache, numbness, or weakness. PSYCHIATRIC: Anxiety and depression PMFSH Past Medical History Medical History Anxiety Kidney stone Pancreatitis Social History Social History Smoking status: Never smoker Alcohol intake: former Substance use: current Substance use type: marijuana Gender identity (if verbalized by the patient): Male Spiritual care concerns: No Exam Narrative: General appearance: Well-developed, well-nourished Skin: Normal color Head: Normocephalic, nontraumatic Eyes: Clear conjunctiva ENT: Oropharynx normal, ears normal, nose normal Neck: Supple, nontender Chest and respiratory: Airway patent, no respiratory distress, no accessory muscle use Heart: Regular rate/rhythm Abdomen: Soft, mild diffuse tenderness, no organomegaly, quiet bowel sounds Vascular: Normal peripheral pulses, normal capillary refill. Musculoskeletal: Normal range of motion, nontender back Neurologic: Alert and oriented ?3, NEURORADIOLOGIST is normal as tested, no gross motor deficit Course Course Emergency Course: Improving Vital Signs Vital signs: Vital Signs Temperature 36.3 C L 01/15/21 16:52 Pulse Rate 67 01/15/21 16:52 Respiratory Rate 19 01/15/21 16:52 Blood Pressure 211/107 H 01/15/21 16:52 Pulse Oximetry 97 01/15/21 16:52 Temperature 36.3 C L 01/15/21 16:52 Pulse Rate 67 01/15/21 16:52 Respiratory Rate 19 01/15/21 16:52 Blood Pressure 211/107 H 01/15/21 16:52 Pulse Oximetry 97 01/15/21 16:52 MDM - Abdominal Pain MDM Narrative Medical decision making narrative: Abdominal pain, vomiting, high likely secondary to anxiety and stress. Differential Diagnosis Differential diagnosis: Likely abdominal pain, pancreatitis and other (Stress-like symptoms, anxiety, electrolyte imbalance) Lab Data Result diagrams: 01/15/21 16:59 01/15/21 16:59 Labs: Lab Results 01/15/21 01/15/21 Range/Units 16:59 16:59 WBC Pending RBC Pending Hgb Pending Hct Pending MCV Pending MCH Pending MCHC Pending RDW Pending Plt Count Pending MPV Pending Immature Gran % (Auto) Pending Neut % (Auto) Pending
[2021-01-15 17:13] LABS: Alanine Aminotransferase 54 U/L (4-50); Alkaline Phosphatase 31 U/L (38-126); Anion Gap 11 mmol/L (8-16); Aspartate Amino Transferase 34 U/L (17-59); Bilirubin,Total 0.7 mg/dL (0.2-1.3); Blood Urea Nitrogen 19 mg/dL (9-20); Calcium 9.5 mg/dL (8.4-10.2); Carbon Dioxide 23 mmol/L (22-30); Chloride 102 mmol/L (98-107); Estimated CRCL calculation 142 ml/min; Estimated Glomerular Filt Rate > 60; Glucose 159 mg/dL (65-110); Lipase 132 U/L (23-300); Potassium 3.5 mmol/L (3.4-5.0); Sodium 136 mmol/L (137-145)
[2021-01-15] MEDS: LORazepam INJ (*CRX) 2 MG/ML VIAL 1 MG IV PUSH (17:20)
[2021-01-15] MEDS: METOCLOPRAMIDE HCL INJ 10 MG/2 ML VIAL IV PUSH (17:20)
[2021-01-15] MEDS: diphenhydrAMINE HCl INJ 50 MG/ML VIAL IV PUSH (17:20)
[2021-01-15] MEDS: SODIUM CHLORIDE 0.9% IV 1,000 ML 999 ML IV CONT (17:21)
[2021-01-15] MEDS: HYDROmorphone HCL INJ (*CRX) 1 MG/ML SYR 0.5 MG IV PUSH (17:21)
[2021-01-15 19:05] VITALS: BP 136/89; PULSE 88; RESP 16; O2SAT 97
== END 2021-01-15 19:16 | disposition home or self-care (01) ==
PROVIDERS: Emergency Provider Emergency Medicine; PCP Orthopaedic Surgery Orthopaedic Trauma
DX: R10.10 Upper abdominal pain, unspecified (principal); R11.2 Nausea with vomiting, unspecified; F41.9 Anxiety disorder, unspecified
CPT/HCPCS: 36415; 74176; 80053; 83690; 85025; 96361; 96374; 96375; 99284; J1170; J1200; J2060; J2765; J7030

== ENCOUNTER 2021-03-11 12:24 | Emergency (ER) | payer OTHER, SELFPAY ==
--- NOTE | ~2021-03-11 | CT_ITS ---
EXAMINATION: CT abdomen pelvis wo con DATE: 03/11/2021 13:40 INDICATION: Gastritis TECHNIQUE: Computed tomography (CT) of the abdomen and pelvis was performed without intravenous contr ast. Automated exposure control and iterative reconstruction technique were employed. The dose-length product was 1215.28 mGy-cm. COMPARISON: 01/15/2021 FINDINGS: Lung bases are clear. Heart size is normal. No pericardial or pleural effusion. Small sliding-type hi atal hernia. Diffuse hepatic steatosis. Cholecystectomy clips the gallbladder fossa. Spleen, pancreas , bilateral adrenal glands and kidneys are normal. 10 x 9 x 6 mm stone at the right ureteropelvic jonas ction without hydronephrosis. Postoperative change of prior appendectomy. Remainder of the bowels inc luding the stomach appear normal. Bladder is normal. Small fat-containing right inguinal hernia. No f ree intraperitoneal gas or fluid. No pathologically enlarged abdominal or pelvic lymphadenopathy. Mil d bilateral hip osteoarthritis. IMPRESSION: 1. 10 mm nonobstructing stone at the right ureteropelvic junction without hydronephrosis. 2. Diffuse hepatic steatosis. 3. Small sliding-type hiatal hernia. Reviewed, dictated and finalized at location A. OPERATOR IMPRESSION: 1. 10 mm nonobstructing stone at the right ureteropelvic junction without hydro nephrosis. 2. Diffuse hepatic steatosis. 3. Small sliding-type hiatal hernia.
[2021-03-11 12:30] VITALS: BP 188/108; PULSE 68; RESP 18; TEMP 36.4; O2SAT 97
--- NOTE | 2021-03-11 12:37 | ED.ABDPAIN ---
HPI - Abdominal Pain General Chief Complaint: Abdominal Pain Stated Complaint: Abd Pain, N/V Time Seen by Provider: 03/11/21 12:35 Source: patient Mode of arrival: ambulatory Limitations: no limitations History of Present Illness HPI narrative: Patient is a 35-year-old male complaining of nausea, vomiting, diarrhea accompanied by diffuse abdominal pain that started early this morning. Patient describes his vomitus is nonbilious nonbloody. Patient describes his diarrhea as loose watery, nonbloody. Patient states this is abdominal pain is diffuse, dull, 6 out of 10, nonradiating. Patient denies any chest pain, shortness of breath, fever, chills or urinary symptoms. Patient states that he is not able to take his blood pressure medication this morning because of his nausea vomiting and that is why his blood pressure is elevated. Related Data Home Medications Medication Instructions Recorded Confirmed fluoxetine [Prozac] 80 mg PO AC 06/04/19 06/23/20 ondansetron 4 mg PO PRN PRN 06/23/20 06/23/20 Allergies Allergy/AdvReac Type Severity Reaction Status Date / Time Contrast Media Allergy Intermediate Swelling Uncoded 06/04/19 05:46 Review of Systems Review of Systems: All systems reviewed & are unremarkable except as noted in HPI and below Constitutional: Constitutional: Denies body ache(s), Denies chills, Denies excessive sweating, Denies fatigue, Denies fever(s), Denies headache(s), Denies lethargy, Denies malaise, Denies weakness and Denies weight loss Eyes: Eyes: Denies blurry vision, Denies change in vision and Denies loss of vision ENT: Denies dizziness, Denies ear discharge, Denies headache(s), Denies lip swelling, Denies epistaxis, Denies nasal congestion, Denies neck pain, Denies throat swelling and Denies tongue swelling Cardiovascular: Cardiovascular: Denies chest pain, Denies chest pain at rest, Denies chest pain with activity, Denies diaphoresis, Denies rapid heart rate, Denies edema, Denies irregular heart rhythm, Denies lightheadedness, Denies palpitations, Denies dyspnea and Denies dyspnea on exertion Respiratory: Respiratory: Denies chest congestion, Denies cough, Denies hemoptysis, Denies dyspnea and Denies dyspnea on exertion Gastrointestinal: Gastrointestinal: Denies melena, Denies hematochezia and Denies hematemesis Musculoskeletal: Musculoskeletal: Denies abnormal gait, Denies deformity, Denies joint swelling, Denies limited range of motion, Denies neck pain and Denies numbness Neurologic: Denies Abnormal speech present, Denies abnormal gait, Denies confusion, Denies dizziness, Denies headache(s), Denies focal weakness, Denies loss of vision, Denies numbness, Denies Other visual disturbances, Denies Sensory deficit (Neuro) and Denies weakness Psychiatric: Psychiatric: Denies confusion, Denies depression, Denies auditory hallucinations, Denies homicidal ideation and Denies suicidal ideation Endocrine: Endocrine: Denies cold intolerance, Denies excessive sweating, Denies fatigue, Denies heat intolerance and Denies palpitations Hematologic/Lymphatic: Hematologic/Lymphatic: Denies easy bleeding and Denies easy bruising Allergic/Immunologic: Allergic/Immunologic: Denies lip swelling, Denies throat swelling and Denies tongue swelling PMFSH Past Medical History Medical History Anxiety Kidney stone Pancreatitis Social History Social History Smoking status: Never smoker Alcohol intake: former Substance use: current Substance use type: marijuana Gender identity (if verbalized by the patient): Male Spiritual care concerns: No Exam Const: General: cooperative, healthy appearing, comfortable, no acute distress, well developed, alert and awake; No confusion Orientation/consciousness: oriented to person, oriented to place, oriented to time, patient oriented x3 and No confusion Limitat
[2021-03-11 12:43] LABS: Basophils Absolute Auto 0.1 K/mm3 (0.0-0.1); Basophils Percent Auto 0.3 % (0.2-1.2); Eosinophils Percent Auto 0.1 % (0-4.4); Hematocrit 50.1 % (42.0-52.0); Hemoglobin 17.2 g/dL (14.0-18.0); Immature Granulocyte Absolute 0.19 K/mm3 (0.00-0.031); Immature Granulocyte Percent A 1.2 % (0-0.5); Lymphocytes Absolute Auto 1.41 K/mm3 (0.9-3.2); Lymphocytes Percent Auto 9.3 % (18.3-44.2); Mean Corpuscular HGB Conc 34.3 g/dl (32-36); Mean Corpuscular Hemoglobin 30.8 pg (26-34); Mean Corpuscular Volume 89.6 fl (80-100); Mean Platelet Volume 10.7 fl (7.4-10.4); Monocytes Absolute Auto 0.4 K/mm3 (0.1-0.6); Monocytes Percent Auto 2.5 % (2.6-8.5); Neutrophils Absolute Auto 13.2 K/mm3 (1.3-6.7); Neutrophils Percent Auto 86.6 % (45.5-73.1); Platelet Count Result 268 k/mm3 (150-375); Red Blood Count 5.59 M/mm3 (4.6-6.20); Red Cell Distribution Width 13.6 % (11.5-14.5); White Blood Count 15.2 K/mm3 (4.5-10.0)
[2021-03-11 12:46] LABS: Add Urine Microscopic? YES; Appearance Urine Clear (Clear); Bilirubin Urine Negative (Negative); Blood Urine Negative (Negative); Color Urine Yellow (Yellow); Glucose Urine UA 1+ mg/dL (Negative); Ketones Urine Negative (Negative); Leukocyte Esterase Ur Negative LEU/UL (Negative); Mucus Urine Rare /lpf; Nitrate Urine Negative (Negative); Protein Urine 2+ mg/dL (Negative); Specific Grav Ur 1.016 (1.001-1.035); Urobilinogen Urine Negative mg/dL (<2.0); WBC Urine 0-3 /hpf
[2021-03-11 12:57] LABS: Albumin Level 4.8 g/dL (3.5-5.1); Alkaline Phosphatase 34 U/L (38-126); Anion Gap 9 mmol/L (8-16); Aspartate Amino Transferase 34 U/L (17-59); Bilirubin,Total 0.4 mg/dL (0.2-1.3); Blood Urea Nitrogen 8 mg/dL (9-20); Calcium 9.7 mg/dL (8.4-10.2); Carbon Dioxide 23 mmol/L (22-30); Chloride 108 mmol/L (98-107); Estimated CRCL calculation 170 ml/min; Estimated Glomerular Filt Rate > 60; Glucose 168 mg/dL (65-110); Lipase 83 U/L (23-300); Potassium 4.1 mmol/L (3.4-5.0); Sodium 140 mmol/L (137-145)
[2021-03-11] MEDS: SODIUM CHLORIDE 0.9% IV 1,000 ML 999 ML IV CONT (12:59)
[2021-03-11] MEDS: ONDANSETRON INJ 4 MG/2 ML VIAL IV PUSH (12:59)
[2021-03-11 13:16] LABS: Alanine Aminotransferase 75 U/L (4-50)
[2021-03-11] MEDS: PROMETHAZINE HCL 25 MG/ML AMPUL 12.5 MG IV PUSH (13:32)
[2021-03-11] MEDS: KETOROLAC 30 MG/ML VIAL (*BKC) IV PUSH (13:33)
[2021-03-11 13:46] VITALS: BP 175/102; PULSE 69; RESP 18; O2SAT 100
[2021-03-11] MEDS: LABETALOL HCL INJ 100 MG/20 ML VIAL 20 MG IV PUSH (13:48)
[2021-03-11 14:30] VITALS: BP 169/110
[2021-03-11 16:27] VITALS: BP 178/117; O2SAT 98
[2021-03-11 16:29] VITALS: BP 184/109; PULSE 67; RESP 18; O2SAT 100
[2021-03-11] MEDS: KETOROLAC 15 MG/ML VIAL (*BKC) IV PUSH (16:40)
[2021-03-11] MEDS: hydrALAZINE HCL 20 MG/ML VIAL IV PUSH (16:46)
--- NOTE | 2021-03-11 16:47 | WPDURCON ---
Assessment and Plan Assessment and plan (1) Ureteropelvic junction calculus: Code(s): N20.1 - Calculus of ureter Status: Acute Assessment and Plan: Follow up as an outpatient with Dr. Ruelas. No further evaluation needed. (2) Abdominal pain: Qualifiers: Abdominal location: generalized Qualified Code(s): R10.84 - Generalized abdominal pain Code(s): R10.9 - Unspecified abdominal pain Status: Acute Assessment and Plan: Not related to stone. His stone is chronic >1 year, non obstructive, UA is showing only microhematuria which is expected with a large stone. He has no symptoms of a UTI. (3) Microhematuria: Code(s): R31.29 - Other microscopic hematuria Status: Acute Urology Consult Note HPI Date Seen: 03/11/21 Primary Care Provider: Bear Boyd, Consult Narrative Narrative: Brodie Torres is a 35 year old male who presents to the ER for acute onset of nausea, vomiting and diarrhea that started today. He is hypertensive and has an elevated WBC of 15.2, creatinine is normal at 0.60 and UA shows just some RBC's 3-5 p/hpf. He has a known right UPJ stone that was initially found on a CT from 06/04/2019 which measured 7mm and had no hydro present. He as then re-scanned on 06/22/2020 which showed an increase in the size of the stone of 12mm still in the Right upj without hydronephrosis. We were consulted at that time and offered to place a stent for pain control, but the patient refused. Since he has medicaid insurance and we don't accept that, we referred him to [facility]. He followed up with our group at [facility] with Dr. Ruelas and states that he had an aborted right lithotripsy d/t anesthesia issues. He was supposed to follow up once his anesthesia issues are resolved. He as scanned again on 01/15/2021 which showed the stone at 1cm in size still in the right UPJ without obstruction. Today's CT measures the stone at 10mm in the right UPJ no obstruction. He denies hematuria, frequency, hesitancy, flank pain, urgency or dysuria. He c/o nausea, vomiting and generalized abdominal pain that he states is caused from his depression/anxiety. He has no flank pain at this time. Review of Systems Cardiovascular: Cardiovascular: Denies chest pain Respiratory: Respiratory: Reports no additional respiratory complaints Gastrointestinal: Gastrointestinal: Reports abdominal pain, Reports diarrhea, Reports nausea and Reports vomiting Genitourinary: Genitourinary: Denies hematuria, Denies dysuria, Denies flank pain, Denies urinary frequency and Denies urinary urgency PMFSH Past Medical History Medical History Anxiety Kidney stone Pancreatitis Social History Social History Smoking status: Never smoker Alcohol intake: former Substance use: current Substance use type: marijuana Gender identity (if verbalized by the patient): Male Spiritual care concerns: No Meds Home Medications and Allergies Home Medications Medication Instructions Recorded Confirmed Type famotidine [Pepcid] 20 mg PO DAILY #14 tablet 06/04/19 06/23/20 Rx fluoxetine [Prozac] 80 mg PO AC 06/04/19 06/23/20 History clonidine 1 patch TRANSDERMAL WEEKLY #4 ea 06/23/20 Rx hydrocodone-acetaminophen 1 tablet PO Q6H PRN #16 tablet 06/23/20 Rx ondansetron 4 mg PO PRN PRN 06/23/20 06/23/20 History ondansetron HCl [Zofran] 4 mg PO Q6H PRN #20 tablet 06/23/20 Rx tamsulosin 0.4 mg PO DAILY #30 cap 06/23/20 Rx cephalexin 500 mg PO Q12H 10 Days #20 cap 08/06/20 Rx hydrocodone-acetaminophen 1 tablet PO Q6H PRN #10 tablet 08/06/20 Rx ondansetron 4 mg PO Q6H PRN #14 tablet 08/06/20 Rx Allergies Allergy/AdvReac Type Severity Reaction Status Date / Time Contrast Media Allergy Intermediate Swelling Uncoded 06/04/19 05:46 Vital Signs Vital Signs - 24 hr 03/11/21 12:30 03/11/21
[2021-03-11 17:29] VITALS: BP 151/88; PULSE 88; RESP 18; O2SAT 100
== END 2021-03-11 17:31 | disposition home or self-care (01) ==
PROVIDERS: Emergency Medicine; Emergency Provider Emergency Medicine; PCP Orthopaedic Surgery Orthopaedic Trauma
DX: N20.1 Calculus of ureter (principal); I16.0 Hypertensive urgency; R11.2 Nausea with vomiting, unspecified; R10.84 Generalized abdominal pain; F41.9 Anxiety disorder, unspecified; Z87.442 Personal history of urinary calculi; K76.0 Fatty (change of) liver, not elsewhere classified; K44.9 Diaphragmatic hernia without obstruction or gangrene
CPT/HCPCS: 36415; 74176; 80053; 81001; 83690; 85025; 96361; 96374; 96375; 96376; 99284; J0360; J1885; J2405; J2550; J7030

== ENCOUNTER 2021-05-12 00:11 | Emergency (ER) | payer OTHER, SELFPAY ==
[2021-05-12] VITALS (15 sets, daily range): BP systolic 130–218; BP diastolic 82–111; PULSE 62–85; RESP 12–20; TEMP 36.6; O2SAT 95–100
--- NOTE | 2021-05-12 00:31 | ECG_ITS ---
Measurements Intervals [place] Rate: 65 P: 7 TX: 154 QRS: 68 QRSD: 97 T: 44 QT: 444 QTc: 463 Interpretive Statements SINUS RHYTHM WITH SINUS ARRHYTHMIA NONSPECIFIC T-WAVE ABNORMALITY COMPARED TO ECG 08/17/2018 18:39:06 SINUS ARRHYTHMIA NOW PRESENT T-WAVE ABNORMALITY NOW PRESENT Electronically Signed On 05-12-2021 18:50:50 CDT by Nicol Romero M.D.
[2021-05-12 00:40] LABS: Basophils Absolute Auto 0.1 K/mm3 (0.0-0.1); Basophils Percent Auto 0.3 % (0.2-1.2); Eosinophils Percent Auto 0.2 % (0-4.4); Hematocrit 49.4 % (42.0-52.0); Hemoglobin 16.8 g/dL (14.0-18.0); Immature Granulocyte Absolute 0.12 K/mm3 (0.00-0.031); Immature Granulocyte Percent A 0.7 % (0-0.5); Lymphocytes Percent Auto 9.2 % (18.3-44.2); Mean Corpuscular Hemoglobin 30.7 pg (26-34); Mean Corpuscular Volume 90.3 fl (80-100); Mean Platelet Volume 10.7 fl (7.4-10.4); Monocytes Absolute Auto 0.9 K/mm3 (0.1-0.6); Monocytes Percent Auto 5.1 % (2.6-8.5); Neutrophils Absolute Auto 14.7 K/mm3 (1.3-6.7); Neutrophils Percent Auto 84.5 % (45.5-73.1); Platelet Count Result 253 k/mm3 (150-375); Red Blood Count 5.47 M/mm3 (4.6-6.20); Red Cell Distribution Width 14.1 % (11.5-14.5); White Blood Count 17.4 K/mm3 (4.5-10.0)
--- NOTE | 2021-05-12 00:40 | ED.ABDPAIN ---
HPI - Abdominal Pain General Chief Complaint: Abdominal Pain Stated Complaint: nausea, vomiting, abd pain Time Seen by Provider: 05/12/21 00:21 Source: patient, RN notes reviewed and old records reviewed Mode of arrival: EMS Limitations: no limitations History of Present Illness HPI narrative: This is a 35 year old male with history of anxiety and PTSD who presents for evaluation nausea, vomiting and abdominal pain. He states his PTSD has been flaring up over the past 3 days. He developed nausea, vomiting and diffuse abdominal pain 3 hours ago. He states this happens when he is having an issue with his PTSD. He is having nonbloody emesis. He denies associated fever or diarrhea. He is having hot and cold flashes with sweating. He denies chest pain or URI symptoms. Related Data Home Medications Medication Instructions Recorded Confirmed fluoxetine [Prozac] 80 mg PO AC 06/04/19 06/23/20 Allergies Allergy/AdvReac Type Severity Reaction Status Date / Time Contrast Media Allergy Intermediate Swelling Uncoded 06/04/19 05:46 Review of Systems Review of Systems: All systems reviewed & are unremarkable except as noted in HPI and below Constitutional: Constitutional: Reports chills Cardiovascular: Cardiovascular: Denies chest pain, Denies rapid heart rate, Denies radiating jaw, neck or arm pain and Denies slow heart rate Respiratory: Respiratory: Denies cough, Reports dyspnea and Denies wheezing Gastrointestinal: Gastrointestinal: Reports abdominal pain, Denies constipation, Denies diarrhea, Reports nausea and Reports vomiting Musculoskeletal: Musculoskeletal: Denies back pain Psychiatric: Psychiatric: Reports anxiety [facility] Past Medical History Medical History Anxiety Kidney stone Pancreatitis Social History Social History Smoking status: Never smoker Alcohol intake: former Substance use: current Substance use type: marijuana Gender identity (if verbalized by the patient): Male Spiritual care concerns: No Exam Const: General: alert Nutritional Appearance: obese Orientation/consciousness: patient oriented x3 Eyes: EOM: EOMs intact bilaterally Chest: Chest palpation & inspection: normal inspection of the chest Resp: Effort & Inspection: normal respiratory effort and no retractions Auscultation: clear to auscultation bilaterally Cardio: Rate: regular rate Rhythm: regular rhythm Heart sounds: no murmurs GI: GI Palp: Yes Soft to palpation, Yes Tenderness to palpation present (GI) (epigastric), No Guarding due to palpation present (GI) and No Rigid due to palpation Auscultation: normal bowel sounds Skin: General skin exam: normal color Rashes: no rashes Neuro: General: patient oriented x3, moves all extremities and CN's II-XI intact bilaterally Psych: Affect: Sad affect present Course Reevaluation(s) Reevaluation #1: I discussed with patient labs. Patient has leukocytosis which is likely stress reaction. He states his symptoms are similar to previous visits. He has had multiple CT abdomen and pelvis so at this point I do not think we need to repeat. he has nonsurgical abdomen. Patient states he is feeling much better. He has been able to tolerate PO. BP has improved to 130/82 as well. Date: 05/12/21 Time: 07:09 Vital Signs Vital signs: Vital Signs Temperature 97.8 F 05/12/21 00:14 Pulse Rate 68 05/12/21 00:14 Respiratory Rate 16 05/12/21 00:14 Blood Pressure 192/107 H 05/12/21 00:14 Pulse Oximetry 96 05/12/21 00:14 Temperature 97.8 F 05/12/21 00:14 Pulse Rate 82 05/12/21 07:15 Respiratory Rate 14 05/12/21 07:15 Blood Pressure 130/82 05/12/21 07:01 Pulse Oximetry 99 05/12/21 07:15 MDM - Abdominal Pain Lab Data Attestation: I reviewed the patient's lab results. Result diagrams: 05/12/21 00:34
[2021-05-12] MEDS: ONDANSETRON INJ 4 MG/2 ML VIAL IV PUSH (00:43)
[2021-05-12] MEDS: HYDROmorphone HCL INJ (*CRX) 1 MG/ML SYR IV PUSH (00:43)
[2021-05-12] MEDS: SODIUM CHLORIDE 0.9% IV 1,000 ML 999 ML IV CONT (00:44)
[2021-05-12 00:49] LABS: Alanine Aminotransferase 50 U/L (4-50); Albumin Level 4.7 g/dL (3.5-5.1); Alkaline Phosphatase 30 U/L (38-126); Anion Gap 10 mmol/L (8-16); Aspartate Amino Transferase 36 U/L (17-59); Bilirubin,Total 0.4 mg/dL (0.2-1.3); Blood Urea Nitrogen 11 mg/dL (9-20); Calcium 8.8 mg/dL (8.4-10.2); Carbon Dioxide 25 mmol/L (22-30); Chloride 104 mmol/L (98-107); Estimated CRCL calculation 137 ml/min; Estimated Glomerular Filt Rate > 60; Glucose 159 mg/dL (65-110); Lipase 152 U/L (23-300); Potassium 3.9 mmol/L (3.4-5.0); Sodium 139 mmol/L (137-145)
[2021-05-12 01:00] LABS: Troponin I < 0.012 ng/mL (0.000-0.034)
[2021-05-12] MEDS: hydrALAZINE HCL 20 MG/ML VIAL 10 MG IV PUSH (01:26)
--- NOTE | 2021-05-12 01:31 | PC.NURSE ---
Pt informed that we need a urine sample. Pt reports only having to go a little bit and would like to wait for the fluids to run a while longer.
[2021-05-12] MEDS: cloNIDine HCL 0.1 MG TABLET 0.2 MG PO (02:05)
[2021-05-12] MEDS: PROMETHAZINE HCL 25 MG/ML AMPUL 12.5 MG IV PUSH ×2 (02:43→04:06)
[2021-05-12] MEDS: SODIUM CHLORIDE 0.9% IV 250 ML 999 ML IV CONT (02:43)
[2021-05-12 03:00] LABS: Add Urine Microscopic? YES; Appearance Urine Cloudy (Clear); Bilirubin Urine Negative (Negative); Blood Urine Negative (Negative); Color Urine Yellow (Yellow); Glucose Urine UA 1+ mg/dL (Negative); Ketones Urine Negative (Negative); Leukocyte Esterase Ur Negative LEU/UL (Negative); Mucus Urine Rare /lpf; Nitrate Urine Negative (Negative); Protein Urine 1+ mg/dL (Negative); RBC Urine 0-2 /hpf (0-2); Specific Grav Ur 1.016 (1.001-1.035); Urobilinogen Urine Negative mg/dL (<2.0); WBC Urine 0-3 /hpf
[2021-05-12 03:06] LABS: Amphetamine Screen Urine Negative (Negative); Barbiturate Screen Urine Negative (Negative); Benzodiazepines Screen Urine Negative (Negative); Cannabinoid Screen Urine Positive (Negative); Cocaine Screen Urine Negative (Negative); Methadone Screen Urine Negative (Negative); Opiate Screen Urine Positive (Negative); Phencyclidine Screen Urine Negative (Negative)
[2021-05-12] MEDS: PANTOPRAZOLE SODIUM IV 40 MG VIAL IV PUSH (04:05)
[2021-05-12] MEDS: KETOROLAC 30 MG/ML VIAL (*BKC) IV PUSH (04:07)
== END 2021-05-12 07:20 | disposition home or self-care (01) ==
PROVIDERS: Emergency Provider General Practice; PCP Orthopaedic Surgery Orthopaedic Trauma
DX: R11.14 Bilious vomiting (principal); F41.9 Anxiety disorder, unspecified; F43.10 Post-traumatic stress disorder, unspecified; Z87.442 Personal history of urinary calculi; R94.31 Abnormal electrocardiogram [ECG] [EKG]
CPT/HCPCS: 36415; 80053; 80307; 81001; 83690; 84484; 85025; 93005; 96361; 96374; 96375; 96376; 99284; A9270; C9113; J0360; J1170; J1885; J2405; J2550; J7030; J7050

== ENCOUNTER 2021-05-15 22:31 | Emergency (ER) | payer OTHER, SELFPAY ==
[2021-05-15 22:32] VITALS: BP 167/112; PULSE 103; RESP 22; TEMP 36.7; O2SAT 97
--- NOTE | 2021-05-15 22:39 | ED.ABDPAIN ---
HPI - Abdominal Pain General Chief Complaint: Abdominal Pain Stated Complaint: nausea, vomiting Time Seen by Provider: 05/15/21 22:39 History of Present Illness HPI narrative: 35-year-old male presents to the emergency room with acute onset of vomiting. Patient states he has vomited approximately 10-15 times this evening. Patient reports nonbilious, nonbloody, emesis. Patient states he is under the care of a GI doctor. Patient states that his anxiety causes him to get nausea. Patient complains of diffuse abdominal tenderness. Related Data Home Medications Medication Instructions Recorded Confirmed fluoxetine [Prozac] 80 mg PO AC 06/04/19 06/23/20 Allergies Allergy/AdvReac Type Severity Reaction Status Date / Time Contrast Media Allergy Intermediate Swelling Uncoded 05/15/21 22:36 Review of Systems Review of Systems: CONSTITUTIONAL: Denies fever, chills, or sweats. EYES: Denies visual changes, redness, or discharge. ENT: Denies rhinorrhea, congestion, sore throat, or otalgia. CARDIOVASCULAR: Denies chest pain, palpitations, or edema. RESPIRATORY: Denies cough or dyspnea. GASTROINTESTINAL: Reports abdominal tenderness, nausea and vomiting. GENITOURINARY: Denies dysuria or hematuria. SKIN: Denies rash or itching. MUSCULOSKELETAL: Denies back pain, joint pain, or myalgia. NEUROLOGIC: Denies headache, numbness, dizziness, or weakness. PSYCHIATRIC: Denies anxiety or depression. [facility] Past Medical History Medical History Anxiety Kidney stone Pancreatitis Social History Social History Smoking status: Never smoker Alcohol intake: former Substance use: current Substance use type: marijuana Gender identity (if verbalized by the patient): Male Spiritual care concerns: No Exam Narrative: GENERAL: Well-appearing, well-nourished, and in no acute distress. HEAD: Normocephalic, atraumatic. EYES: PERRLA and EOMI. CHEST: Clear to auscultation. No respiratory distress. No wheezes rales or rhonchi HEART: Regular rate and rhythm. No murmur heard. Normal peripheral pulses. ABDOMEN: Soft, generalized tenderness, distended, normal bowel sounds, no guarding EXTREMITIES: Normal range of motion. No edema. SKIN: Warm, dry, no rash. NEURO: No focal deficits. Alert and oriented x3. PSYCH: Normal mood and affect. Course Vital Signs Vital signs: Vital Signs Temperature 36.7 C 05/15/21 22:32 Pulse Rate 103 H 05/15/21 22:32 Respiratory Rate 22 H 05/15/21 22:32 Blood Pressure 167/112 H 05/15/21 22:32 Pulse Oximetry 97 05/15/21 22:32 Temperature 36.7 C 05/15/21 22:32 Pulse Rate 103 H 05/15/21 22:32 Respiratory Rate 22 H 05/15/21 22:32 Blood Pressure 167/112 H 05/15/21 22:32 Pulse Oximetry 97 05/15/21 22:32 MDM - Abdominal Pain MDM Narrative Medical decision making narrative: 35-year-old male patient presented to the emergency room for evaluation of his abdominal pain and vomiting. Patient states after Zofran, Reglan, Benadryl, Dilaudid, Protonix, Toradol, and dicyclomine he was feeling better. Refused further evaluation including a CAT scan of his abdomen. Strongly encouraged patient to follow-up with GI physician for his ongoing abdominal pain and vomiting. Also encourage patient to follow-up with his PCP about his PTSD/anxiety. Differential Diagnosis Differential diagnosis: Likely abdominal pain Lab Data Attestation: I reviewed the patient's lab results. Result diagrams: 05/15/21 22:41 05/15/21 22:41 Labs: Lab Results 05/15/21 05/15/21 05/15/21 Range/Units 22:41 22:41 22:48 WBC 13.1 H (4.5-10.0) K/mm3 RBC 5.50 (4.6-6.20) M/mm3 Hgb 16.9 (14.0-18.0) g/dL Hct 49.6 (42.0-52.0) % MCV 90.2 (80-100) fl MCH 30.7 (26-34) pg MCHC 34.1 (32-36) g/dl RDW 13.8 (11.5-14.5) % Plt Count 268 (150-375) k/m
[2021-05-15 22:56] LABS: Appearance Urine Clear (Clear); Bilirubin Urine Negative (Negative); Color Urine Yellow (Yellow); Glucose Urine UA Negative (Negative); Ketones Urine Negative (Negative); Leukocyte Esterase Ur Negative LEU/UL (Negative); Nitrate Urine Negative (Negative); Protein Urine 1+ mg/dL (Negative); Specific Grav Ur >= 1.030 (1.001-1.035)
[2021-05-15 22:57] LABS: Basophils Percent Auto 0.3 % (0.2-1.2); Eosinophils Absolute Auto 0.2 K/mm3 (0-0.3); Eosinophils Percent Auto 1.5 % (0-4.4); Hematocrit 49.6 % (42.0-52.0); Hemoglobin 16.9 g/dL (14.0-18.0); Immature Granulocyte Absolute 0.09 K/mm3 (0.00-0.031); Immature Granulocyte Percent A 0.7 % (0-0.5); Lymphocytes Absolute Auto 2.06 K/mm3 (0.9-3.2); Lymphocytes Percent Auto 15.7 % (18.3-44.2); Mean Corpuscular HGB Conc 34.1 g/dl (32-36); Mean Corpuscular Hemoglobin 30.7 pg (26-34); Mean Corpuscular Volume 90.2 fl (80-100); Mean Platelet Volume 10.6 fl (7.4-10.4); Monocytes Absolute Auto 0.8 K/mm3 (0.1-0.6); Monocytes Percent Auto 5.7 % (2.6-8.5); Neutrophils Percent Auto 76.1 % (45.5-73.1); Platelet Count Result 268 k/mm3 (150-375); Red Cell Distribution Width 13.8 % (11.5-14.5); White Blood Count 13.1 K/mm3 (4.5-10.0)
[2021-05-15 23:00] LABS: Bacteria Urine Trace /hpf; Mucus Urine Rare /lpf
[2021-05-15 23:02] LABS: Add Urine Microscopic? YES; Blood Urine Trace (Negative)
[2021-05-15 23:04] LABS: Alanine Aminotransferase 50 U/L (4-50); Albumin Level 4.8 g/dL (3.5-5.1); Alkaline Phosphatase 28 U/L (38-126); Anion Gap 11 mmol/L (8-16); Aspartate Amino Transferase 34 U/L (17-59); Bilirubin,Total 0.3 mg/dL (0.2-1.3); Blood Urea Nitrogen 13 mg/dL (9-20); Calcium 8.7 mg/dL (8.4-10.2); Carbon Dioxide 23 mmol/L (22-30); Chloride 106 mmol/L (98-107); Estimated CRCL calculation 121 ml/min; Estimated Glomerular Filt Rate > 60; Glucose 156 mg/dL (65-110); Lipase 209 U/L (23-300); Potassium 4.3 mmol/L (3.4-5.0); Sodium 140 mmol/L (137-145)
[2021-05-15 23:11] LABS: Barbiturate Screen Urine Negative (Negative)
[2021-05-15 23:15] LABS: Benzodiazepines Screen Urine Negative (Negative)
[2021-05-15 23:16] LABS: Amphetamine Screen Urine Negative (Negative); Cannabinoid Screen Urine Positive (Negative); Cocaine Screen Urine Negative (Negative); Methadone Screen Urine Negative (Negative); Opiate Screen Urine Negative (Negative); Phencyclidine Screen Urine Negative (Negative)
[2021-05-16] VITALS (10 sets, daily range): BP systolic 181–185; BP diastolic 106–113; PULSE 71; RESP 18; O2SAT 97–100
[2021-05-16] MEDS: SODIUM CHLORIDE 0.9% IV 1,000 ML 999 ML IV CONT ×2 (00:07→02:23)
[2021-05-16] MEDS: diphenhydrAMINE HCl INJ 50 MG/ML VIAL 25 MG IV PUSH (00:07)
[2021-05-16] MEDS: METOCLOPRAMIDE HCL INJ 10 MG/2 ML VIAL IV PUSH (00:23)
[2021-05-16] MEDS: LORazepam INJ (*CRX) 2 MG/ML VIAL 1 MG IV PUSH (00:49)
--- NOTE | 2021-05-16 01:25 | PC.NURSE ---
Pt continues to take off pulse ox and BP cuff. RN explained need to monitor.
[2021-05-16] MEDS: KETOROLAC 30 MG/ML VIAL (*BKC) IV PUSH (01:28)
[2021-05-16] MEDS: ONDANSETRON INJ 4 MG/2 ML VIAL IV PUSH (01:28)
--- NOTE | 2021-05-16 02:05 | PC.NURSE ---
Pt unhooked himself from monitoring and IV fluids and walked himself to the restroom without calling out for RN to unhook his fluids. IV still intact.
[2021-05-16] MEDS: PANTOPRAZOLE SODIUM IV 40 MG VIAL IV PUSH (02:23)
[2021-05-16] MEDS: HYDROmorphone HCL INJ (*CRX) 1 MG/ML SYR 0.25 MG IV PUSH (02:23)
--- NOTE | 2021-05-16 02:30 | PC.NURSE ---
Pt taking BP cuff and pulse ox. Unable to monitor. Pt aware of need for vital signs.
== END 2021-05-16 03:09 | disposition home or self-care (01) ==
PROVIDERS: Emergency Medicine; Emergency Provider Nurse Practitioner Family; PCP Orthopaedic Surgery Orthopaedic Trauma
DX: R11.2 Nausea with vomiting, unspecified (principal); R10.84 Generalized abdominal pain; F41.9 Anxiety disorder, unspecified; Z87.442 Personal history of urinary calculi
CPT/HCPCS: 36415; 80053; 80307; 81001; 83690; 85025; 96361; 96374; 96375; 99284; C9113; J1170; J1200; J1885; J2060; J2405; J2765; J7030

== ENCOUNTER 2021-06-23 17:20 | Emergency (ER) | payer OTHER, SELFPAY ==
[2021-06-23 17:32] VITALS: BP 159/109; PULSE 97; RESP 18; TEMP 37; O2SAT 96
--- NOTE | 2021-06-23 17:45 | PC.NURSE ---
EDP Oliver aware patient is a moderate risk on the [place] Risk assessment. Per EDP Oliver, no sitter is needed for one on one observation and patient is allowed to keep belongings. ED charge nurse Naomi lemus. Patient cooperative at this time.
[2021-06-23 18:09] LABS: Appearance Urine Slightly Cloudy (Clear); Bilirubin Urine 2+ (Negative); Blood Urine Negative (Negative); Color Urine Yellow (Yellow); Glucose Urine UA Negative (Negative); Ketones Urine Trace mg/dL (Negative); Leukocyte Esterase Ur 1+ LEU/UL (Negative); Nitrate Urine Negative (Negative); Protein Urine 2+ mg/dL (Negative); Specific Grav Ur >= 1.030 (1.001-1.035); pH Urine 6.5 (5.0-9.0)
[2021-06-23 18:10] LABS: Basophils Percent Auto 0.3 % (0.2-1.2); Eosinophils Absolute Auto 0.2 K/mm3 (0-0.3); Eosinophils Percent Auto 3.2 % (0-4.4); Hematocrit 50.8 % (42.0-52.0); Hemoglobin 17.9 g/dL (14.0-18.0); Immature Granulocyte Absolute 0.01 K/mm3 (0.00-0.031); Immature Granulocyte Percent A 0.2 % (0-0.5); Lymphocytes Absolute Auto 1.45 K/mm3 (0.9-3.2); Mean Corpuscular HGB Conc 35.2 g/dl (32-36); Mean Corpuscular Hemoglobin 31.1 pg (26-34); Mean Corpuscular Volume 88.2 fl (80-100); Mean Platelet Volume 11.8 fl (7.4-10.4); Monocytes Absolute Auto 0.3 K/mm3 (0.1-0.6); Monocytes Percent Auto 5.3 % (2.6-8.5); Platelet Count Result 165 k/mm3 (150-375); Red Blood Count 5.76 M/mm3 (4.6-6.20); Red Cell Distribution Width 13.4 % (11.5-14.5)
--- NOTE | 2021-06-23 18:12 | ED.PSYCH ---
HPI - Psych General Chief Complaint: Psychiatric Symptoms Stated Complaint: SI Time Seen by Provider: 06/23/21 17:29 Source: patient History of Present Illness HPI Narrative: Patient presents requesting medication evaluation. Patient has a history of anxiety depression night terrors and PTSD. He sees a behavioral health provider from [facility] who manages his medications. He has not had any recent changes to his medications. Does report his left proximal early 30 days ago and is causing significant mount of stress in his life as he is now responsible taking care of his 5 children. He reports he has been waking up more frequently from his night terrors and unable to sleep. When he wakes up he reports thoughts of hurting himself with any active plan when he calms down the thoughts of hurting self resolve denies any homicidal ideation. Reports he feels jittery and anxious throughout the day and does not feel like his medications are completely controlling his symptoms. Related Data Home Medications Medication Instructions Recorded Confirmed fluoxetine [Prozac] 80 mg PO AC 06/04/19 06/23/20 Allergies Allergy/AdvReac Type Severity Reaction Status Date / Time Contrast Media Allergy Intermediate Swelling Uncoded 05/15/21 22:36 Review of Systems Review of Systems: CONSTITUTIONAL: Denies fever, chills, or sweats. EYES: Denies visual changes, redness, or discharge. ENT: Denies rhinorrhea, congestion, sore throat, or otalgia. CARDIOVASCULAR: Denies chest pain, palpitations, or edema. RESPIRATORY: Denies cough or dyspnea. GASTROINTESTINAL: Denies abdominal pain, nausea, vomiting, or diarrhea. GENITOURINARY: Denies dysuria or hematuria. SKIN: Denies rash or itching. MUSCULOSKELETAL: Denies back pain, joint pain, or myalgia. NEUROLOGIC: Denies headache, numbness, dizziness, or weakness. PSYCHIATRIC: Reports feeling anxious All systems reviewed & are unremarkable except as noted in HPI and below PMFSH Past Medical History Medical History Anxiety Kidney stone Pancreatitis Social History Social History Smoking status: Never smoker Alcohol intake: former Substance use: current Substance use type: marijuana Gender identity (if verbalized by the patient): Male Spiritual care concerns: No Exam Narrative: GENERAL: Well-appearing, well-nourished, and in no acute distress. HEAD: Normocephalic, atraumatic. EYES: PERRLA and EOMI. ENT: Nares clear, no rhinorrhea or epistaxis. Mucous membranes moist. NECK: Supple. No masses. No JVD CHEST: Clear to auscultation. No respiratory distress. No wheezes rales or rhonchi HEART: Regular rate and rhythm. No murmur heard. Normal peripheral pulses. ABDOMEN: Soft, nontender, nondistended, normal active bowel sounds. EXTREMITIES: Normal range of motion. No edema. SKIN: Warm, dry, no rash. NEURO: No focal deficits. No clonus alert and oriented x3. PSYCH: Patient appears jittery with slightly pressured speech Course Reevaluation(s) Reevaluation #1: Patient is medically stable and appropriate for crisis evaluation. Date: 06/23/21 Time: 18:35 Vital Signs Vital signs: Vital Signs Temperature 37.0 C 06/23/21 17:32 Pulse Rate 97 06/23/21 17:32 Respiratory Rate 18 06/23/21 17:32 Blood Pressure 159/109 H 06/23/21 17:32 Pulse Oximetry 96 06/23/21 17:32 Temperature 37.0 C 06/23/21 17:32 Pulse Rate 97 06/23/21 17:32 Respiratory Rate 18 06/23/21 17:32 Blood Pressure 159/109 H 06/23/21 17:32 Pulse Oximetry 96 06/23/21 17:32 MDM - Psych MDM Narrative Medical decision making narrative: Patient brought in requesting medication adjustment and intermittent SI. Labs obtained and patient was medically stable attempted to contact crisis multiple time for further evaluation. Patient left prior to crisis evaluation. Patient had no acti
[2021-06-23 18:19] LABS: Ethanol < 10 mg/dL (<10)
[2021-06-23 18:20] LABS: Bacteria Urine Trace /hpf; Mucus Urine Moderate /lpf; Squamous Epithelial Cell Urine Rare /hpf (Few); WBC Urine 21-30 /hpf
[2021-06-23 18:24] LABS: Alanine Aminotransferase 137 U/L (6-50); Albumin Level 4.9 g/dL (3.5-5.1); Alkaline Phosphatase 28 U/L (38-126); Anion Gap 10 mmol/L (8-16); Aspartate Amino Transferase 60 U/L (17-59); Bilirubin,Total 0.5 mg/dL (0.2-1.3); Blood Urea Nitrogen 8 mg/dL (9-20); Calcium 9.3 mg/dL (8.4-10.2); Carbon Dioxide 22 mmol/L (22-30); Chloride 106 mmol/L (98-107); Estimated CRCL calculation 110 ml/min; Estimated Glomerular Filt Rate > 60; Glucose 117 mg/dL (65-110); Potassium 4.4 mmol/L (3.4-5.0); Sodium 138 mmol/L (137-145)
[2021-06-23 18:28] LABS: Amphetamine Screen Urine Negative (Negative); Barbiturate Screen Urine Negative (Negative); Benzodiazepines Screen Urine Negative (Negative); Cannabinoid Screen Urine Positive (Negative); Cocaine Screen Urine Negative (Negative); Methadone Screen Urine Negative (Negative); Opiate Screen Urine Negative (Negative); Phencyclidine Screen Urine Negative (Negative)
[2021-06-23 18:46] LABS: SARS-CoV-2 RNA PCR Negative
[2021-06-23 18:53] LABS: Thyroid Stimulating Hormone 0.894 uIU/mL (0.465-4.680)
[2021-06-23 18:55] LABS: Add Urine Microscopic? YES
--- NOTE | 2021-06-23 19:30 | PC.NURSE ---
CHRIS Boyd made RN aware pt is low risk on the [place] scale and has concerns for his children and if he tries to leave pt is allowed to.
--- NOTE | 2021-06-23 20:12 | PC.NURSE ---
spoke with Ariel from [place] states they pt was already evaluated by another worker who is currently busy. She states she is going to speak with this worker and give us a call back in 20 minutes with an update on patients plan of care.
--- NOTE | 2021-06-23 21:23 | PC.NURSE ---
Carlota states she will call back in 5 minutes. She is speaking with her coworker who stated they would head this way in 5 minutes from [place].
--- NOTE | 2021-06-23 21:29 | PC.NURSE ---
Pt on cell phone walking towards door. RN attempted to stop pt to ask if he was leaving or where he was going. PT did not acknoweldge RN and continued to walk out the door. ERP made aware.
== END 2021-06-23 21:32 | disposition left against medical advice (07) ==
PROVIDERS: Emergency Provider Emergency Medicine; PCP Orthopaedic Surgery Orthopaedic Trauma
DX: F41.9 Anxiety disorder, unspecified (principal); F32.A Depression, unspecified; F43.10 Post-traumatic stress disorder, unspecified; F51.4 Sleep terrors [night terrors]; Z87.442 Personal history of urinary calculi; Z20.822 Contact with and (suspected) exposure to COVID-19
CPT/HCPCS: 36415; 80053; 80307; 81001; 84443; 85025; 87086; 87088; 99284; C9803; U0003; U0005

== ENCOUNTER 2021-08-17 09:56 | Emergency (ER) | payer OTHER, SELFPAY ==
--- NOTE | ~2021-08-17 | CT_ITS ---
EXAMINATION: CT abdomen pelvis wo con DATE: 08/17/2021 10:39 INDICATION: Abdominal pain TECHNIQUE: Computed tomography (CT) of the abdomen and pelvis was performed without intravenous contr ast. Automated exposure control and iterative reconstruction technique were employed. The dose-length product was 1195.65 mGy-cm. COMPARISON: 03/11/2021 FINDINGS: Lung bases are clear. Heart size is normal. No pericardial or pleural effusion. Small sliding-type hi atal hernia. Diffuse hepatic steatosis. Cholecystectomy clips the gallbladder fossa. Spleen, pancreas , bilateral adrenal glands and left kidney are normal. Unchanged 10 x 8 x 5 mm stone at the right ure teropelvic junction but without hydronephrosis. No other urolithiasis. Bladder is normal. Tiny bilate ral fat-containing inguinal hernias. Tiny fat-containing umbilical hernia. Status post appendectomy w ith surgical clips and suture line at the tip the cecum. No bowel obstruction. No free intraperitonea l gas or fluid. No pathologically enlarged abdominal or pelvic lymphadenopathy. Mild degenerative ske letal changes in the thoracic spine and bilateral hips. IMPRESSION: 1. Unchanged 10 mm nonobstructing stone at the right ureteropelvic junction without hydronephrosis. 2. Diffuse hepatic steatosis. 3. Small sliding-type hiatal hernia. Reviewed, dictated and finalized at location B. IMPRESSION: 1. Unchanged 10 mm nonobstructing stone at the right ureteropelvic junction wit hout hydronephrosis. 2. Diffuse hepatic steatosis. 3. Small sliding-type hiatal hernia.
[2021-08-17 09:54] VITALS: BP 190/108; PULSE 59; RESP 14; TEMP 36.4; O2SAT 98
--- NOTE | 2021-08-17 10:05 | ED.ABDPAIN ---
HPI - Abdominal Pain General Chief Complaint: Abdominal Pain Stated Complaint: ABD PAIN ALL 4 QUADS History of Present Illness HPI narrative: 35-year-old male presents to the emergency room via EMS for evaluation of abdominal pain and vomiting. Patient has a chronic history of abdominal pain, is under the care of GI specialist. Reports sudden onset of abdominal cramping associated with multiple episodes of nonbilious and nonbloody vomiting. Denies any diarrhea or constipation. Was given 4 mg of Zofran via EMS, states that that has not relieved his symptoms. On arrival to the ER patient is requesting Dilaudid and Ativan. States has not taken any of his home medications for the last week. Related Data Home Medications Medication Instructions Recorded Confirmed fluoxetine 40 mg capsule (Prozac) 80 mg PO AC 06/04/19 06/23/20 amlodipine 5 mg tablet tablet 08/17/21 08/17/21 gabapentin 300 mg capsule cap 08/17/21 olanzapine 10 mg tablet tablet 08/17/21 prazosin 2 mg capsule cap 08/17/21 venlafaxine 150 mg cap PO 08/17/21 capsule,extended release 24 hr Allergies Allergy/AdvReac Type Severity Reaction Status Date / Time Contrast Media Allergy Intermediate Swelling Uncoded 08/17/21 10:00 Review of Systems Review of Systems: CONSTITUTIONAL: Denies fever, chills, or sweats. EYES: Denies visual changes, redness, or discharge. ENT: Denies rhinorrhea, congestion, sore throat, or otalgia. CARDIOVASCULAR: Denies chest pain, palpitations, or edema. RESPIRATORY: Denies cough or dyspnea. GASTROINTESTINAL: Reports abdominal pain and nausea and vomiting GENITOURINARY: Denies dysuria or hematuria. SKIN: Denies rash or itching. MUSCULOSKELETAL: Denies back pain, joint pain, or myalgia. NEUROLOGIC: Denies headache, numbness, dizziness, or weakness. PSYCHIATRIC: Denies anxiety or depression. [facility] Past Medical History Medical History Anxiety Kidney stone Pancreatitis Social History Social History Smoking status: Never smoker Alcohol intake: former Substance use: current Substance use type: marijuana Gender identity (if verbalized by the patient): Male Spiritual care concerns: No Exam Narrative: GENERAL: Well-appearing, well-nourished, no physical limitations, and in no acute distress. HEAD: Normocephalic, atraumatic. EYES: Conjunctivae normal, PERRLA and EOMI. CHEST: Clear to auscultation. No respiratory distress. No wheezes rales or rhonchi. No tenderness. HEART: Regular rate and rhythm. No murmur heard. Normal peripheral pulses. ABDOMEN: Soft, diffusely tender, nondistended, normal active bowel sounds. Guarding throughout abdomen BACK: No CVA tenderness; EXTREMITIES: Normal range of motion. No edema. No clubbing or cyanosis SKIN: Warm, dry, no rash. No noted wounds NEURO: No focal deficits. Alert and oriented x3. MAEW. CN's II-XI intact bilaterally, normal gait PSYCH: Cooperative. Normal mood and affect. Course Course Emergency Course: 1130: Patient requesting to leave AM because he was not giving narcotics in a timely manner . Patient made this request to the bedside nurse. I was unable to discuss the diagnostic findings with the patient prior to leaving [place]. Patient was also requesting a cab voucher to return home. Vital Signs Vital signs: Vital Signs Temperature 36.4 C 08/17/21 09:54 Pulse Rate 59 L 08/17/21 09:54 Respiratory Rate 14 08/17/21 09:54 Blood Pressure 190/108 H 08/17/21 09:54 Pulse Oximetry 98 08/17/21 09:54 Oxygen Delivery Room Air 08/17/21 09:54 Temperature 36.4 C 08/17/21 09:54 Pulse Rate 59 L 08/17/21 09:54 Respiratory Rate 14 08/17/21 09:54 Blood Pressure 190/108 H 08/17/21 09:54 Pulse Oximetry 98 08/17/21 09:54 Oxygen Delivery Room Air 08/17/21 09:54 Discharge Plan Discharge Clinical Impression: Drug-seeking behav
[2021-08-17] MEDS: SODIUM CHLORIDE 0.9% IV 1,000 ML 999 ML IV CONT (10:20)
[2021-08-17] MEDS: DICYCLOMINE HCL INJ 20 MG/2 ML VIAL IM (10:24)
[2021-08-17] MEDS: diphenhydrAMINE HCl INJ 50 MG/ML VIAL 25 MG IV PUSH (10:25)
[2021-08-17] MEDS: METOCLOPRAMIDE HCL INJ 10 MG/2 ML VIAL IV PUSH (10:25)
[2021-08-17 10:27] LABS: Basophils Percent Auto 0.2 % (0.2-1.2); Eosinophils Absolute Auto 0.1 K/mm3 (0-0.3); Eosinophils Percent Auto 0.6 % (0-4.4); Hematocrit 49.9 % (42.0-52.0); Hemoglobin 17.4 g/dL (14.0-18.0); Immature Granulocyte Absolute 0.06 K/mm3 (0.00-0.031); Immature Granulocyte Percent A 0.4 % (0-0.5); Lymphocytes Absolute Auto 0.76 K/mm3 (0.9-3.2); Lymphocytes Percent Auto 5.6 % (18.3-44.2); Mean Corpuscular HGB Conc 34.9 g/dl (32-36); Mean Corpuscular Hemoglobin 30.6 pg (26-34); Mean Corpuscular Volume 87.9 fl (80-100); Mean Platelet Volume 11.4 fl (7.4-10.4); Monocytes Absolute Auto 0.3 K/mm3 (0.1-0.6); Monocytes Percent Auto 2.4 % (2.6-8.5); Neutrophils Absolute Auto 12.2 K/mm3 (1.3-6.7); Neutrophils Percent Auto 90.8 % (45.5-73.1); Platelet Count Result 202 k/mm3 (150-375); Red Blood Count 5.68 M/mm3 (4.6-6.20); Red Cell Distribution Width 14.4 % (11.5-14.5); White Blood Count 13.5 K/mm3 (4.5-10.0)
[2021-08-17] MEDS: PANTOPRAZOLE SODIUM IV 40 MG VIAL IV PUSH (10:29)
[2021-08-17] MEDS: hydrALAZINE HCL 20 MG/ML VIAL IV PUSH (10:30)
[2021-08-17 10:37] LABS: Alanine Aminotransferase 85 U/L (6-50); Albumin Level 5.2 g/dL (3.5-5.1); Alkaline Phosphatase 31 U/L (38-126); Anion Gap 8 mmol/L (8-16); Aspartate Amino Transferase 36 U/L (17-59); Bilirubin,Total 0.6 mg/dL (0.2-1.3); Blood Urea Nitrogen 7 mg/dL (9-20); Calcium 9.6 mg/dL (8.4-10.2); Carbon Dioxide 23 mmol/L (22-30); Chloride 107 mmol/L (98-107); Estimated Glomerular Filt Rate > 60; Glucose 163 mg/dL (65-110); Lipase 58 U/L (23-300); Potassium 3.8 mmol/L (3.4-5.0); Sodium 138 mmol/L (137-145)
--- NOTE | 2021-08-17 10:41 | PC.NURSE ---
pt. to ct
[2021-08-17 10:58] VITALS: BP 177/85; PULSE 73; RESP 14; O2SAT 100
[2021-08-17 11:28] LABS: Appearance Urine Cloudy (Clear); Bilirubin Urine 1+ (Negative); Color Urine Yellow (Yellow); Glucose Urine UA Trace mg/dL (Negative); Ketones Urine 4+ mg/dL (Negative); Leukocyte Esterase Ur Trace LEU/UL (Negative); Nitrate Urine Negative (Negative); Protein Urine 2+ mg/dL (Negative); Urobilinogen Urine >=8.0 mg/dL (<2.0); pH Urine 8.5 (5.0-9.0)
--- NOTE | 2021-08-17 11:33 | PC.NURSE ---
Pt requesting pain medication and to speak to provider, Mac JUICE TESTER notified. Upon arrival back to room pt states he has an emergency with his kid and needs to leave immediately. IV discontinued and AMA forms signed with patient. Pt verbalized understanding that pt is leaving prior to discharge. Pt requesting assistance to have ride home.
[2021-08-17 11:34] LABS: Amorphous Sediment Urine Moderate; Bacteria Urine Trace /hpf; Mucus Urine Rare /lpf; Squamous Epithelial Cell Urine Rare /hpf (Few)
[2021-08-17 11:36] LABS: Add Urine Microscopic? YES; Blood Urine Trace-Intact (Negative)
[2021-08-17 11:43] LABS: Amphetamine Screen Urine Negative (Negative); Barbiturate Screen Urine Negative (Negative); Benzodiazepines Screen Urine Negative (Negative); Cannabinoid Screen Urine Positive (Negative); Cocaine Screen Urine Negative (Negative); Methadone Screen Urine Negative (Negative); Opiate Screen Urine Negative (Negative); Phencyclidine Screen Urine Negative (Negative)
== END 2021-08-17 11:36 | disposition left against medical advice (07) ==
PROVIDERS: Emergency Provider Nurse Practitioner Family; PCP Orthopaedic Surgery Orthopaedic Trauma
DX: F41.9 Anxiety disorder, unspecified (principal); R10.9 Unspecified abdominal pain; Z76.5 Malingerer [conscious simulation]
CPT/HCPCS: 36415; 74176; 80053; 80307; 81001; 83690; 85025; 96361; 96372; 96374; 96375; 99284; C9113; J0360; J0500; J1200; J2765; J7030

== ENCOUNTER 2021-09-01 19:06 | Emergency (ER) | payer OTHER, SELFPAY ==
[2021-09-01 19:46] VITALS: BP 140/85; PULSE 92; RESP 18; TEMP 36.5; O2SAT 98
--- NOTE | 2021-09-01 21:33 | PC.NURSE ---
pt called by Elisa Rivas to be seen in traige and no answer. RN has not seen pt since he went out to smoke right after finishing in triage.
--- NOTE | 2021-09-01 21:43 | PC.NURSE ---
2140- Pt called to go back to a room, no answer. pt not in waiting room or on the bench outside the ER.
== END 2021-09-01 21:43 | disposition left against medical advice (07) ==
LOC: ANHED 21:46
PROVIDERS: Emergency Provider Emergency Medicine; PCP Orthopaedic Surgery Orthopaedic Trauma
DX: R11.2 Nausea with vomiting, unspecified (principal)
CPT/HCPCS: 99199

== ENCOUNTER 2021-09-27 20:20 | Emergency (ER) | payer OTHER, SELFPAY ==
--- NOTE | ~2021-09-27 | CT_ITS ---
EXAMINATION: CT abdomen pelvis wo con DATE: 09/27/2021 20:43 INDICATION: right flank pain TECHNIQUE: Computed tomography (CT) of the abdomen and pelvis was performed without intravenous contr ast. Automated exposure control and iterative reconstruction technique were employed. The dose-length product was 1044.56 mGy-cm. COMPARISON: 08/17/2021. FINDINGS: Lower thorax: Unremarkable Liver: Steatosis Biliary/Gallbladder: Gallbladder is absent. No bile duct dilation. Pancreas: No mass or duct dilation. Spleen: Normal. Adrenals:No mass. Kidneys: Unchanged 9 x 12 mm right renal pelvic stone. No significant hydronephrosis. GI tract: No small or large bowel dilation. Colonic submucosal fat as can be seen with chronic IBD, o besity, chemotherapy treatment, and celiac disease. Hyperdense foci within the lumen of the cecum lik navneet representing ingested medication. Appendix surgically absent. Mesentery/Peritoneum: No ascites, mass, or free air. Retroperitoneum: No mass. Pelvis: Pelvic organs are within normal limits. Soft Tissues: Soft tissues and body wall unremarkable. Bones: No acute osseous finding. IMPRESSION: Stable 9 x 12 mm stone in the right renal pelvis, without hydronephrosis. Steatosis. Reviewed, dictated and finalized at location K. IMPRESSION: Stable 9 x 12 mm stone in the right renal pelvis, without hydronephrosis. Steat osis.
[2021-09-27] MEDS: MORPHINE SULFATE (*CRX) 4 MG/ML INJ IV PUSH (21:03)
[2021-09-27] MEDS: SODIUM CHLORIDE 0.9% IV 1,000 ML 999 ML IV CONT (21:03)
[2021-09-27] MEDS: ONDANSETRON INJ 4 MG/2 ML VIAL IV PUSH (21:03)
[2021-09-27 21:17] LABS: Basophils Percent Auto 0.2 % (0.2-1.2); Eosinophils Percent Auto 0.1 % (0-4.4); Hematocrit 46.4 % (42.0-52.0); Hemoglobin 15.9 g/dL (14.0-18.0); Immature Granulocyte Absolute 0.05 K/mm3 (0.00-0.031); Immature Granulocyte Percent A 0.4 % (0-0.5); Lymphocytes Absolute Auto 0.79 K/mm3 (0.9-3.2); Lymphocytes Percent Auto 6.2 % (18.3-44.2); Mean Corpuscular HGB Conc 34.3 g/dl (32-36); Mean Corpuscular Hemoglobin 30.7 pg (26-34); Mean Corpuscular Volume 89.6 fl (80-100); Mean Platelet Volume 10.9 fl (7.4-10.4); Monocytes Absolute Auto 0.4 K/mm3 (0.1-0.6); Neutrophils Absolute Auto 11.5 K/mm3 (1.3-6.7); Neutrophils Percent Auto 90.1 % (45.5-73.1); Platelet Count Result 175 k/mm3 (150-375); Red Blood Count 5.18 M/mm3 (4.6-6.20); Red Cell Distribution Width 14.6 % (11.5-14.5); White Blood Count 12.8 K/mm3 (4.5-10.0)
[2021-09-27 21:31] LABS: Anion Gap 10 mmol/L (8-16); Blood Urea Nitrogen 6 mg/dL (9-20); Calcium 8.9 mg/dL (8.4-10.2); Carbon Dioxide 24 mmol/L (22-30); Chloride 106 mmol/L (98-107); Estimated CRCL calculation 126 ml/min; Estimated Glomerular Filt Rate > 60; Glucose 125 mg/dL (65-110); Potassium 4.1 mmol/L (3.4-5.0); Sodium 140 mmol/L (137-145)
--- NOTE | 2021-09-27 21:31 | ED.ABDPAIN ---
HPI - Abdominal Pain General Chief Complaint: Abdominal Pain Stated Complaint: right flank pain n/v Time Seen by Provider: 09/27/21 20:25 History of Present Illness HPI narrative: Patient is a 36-year-old male who presents ER with right-sided flank pain. Sudden onset prior to arrival. Radiates into the right upper quadrant. Has history of kidney stone on the right side. Has some nausea. No associate with eating or drinking. Possible urinary frequency with no dysuria or incontinence. Denies fevers or chills or sweats. No alleviating factors found at home. Related Data Home Medications Medication Instructions Recorded Confirmed fluoxetine 40 mg capsule (Prozac) 80 mg PO AC 06/04/19 06/23/20 amlodipine 5 mg tablet tablet 08/17/21 08/17/21 gabapentin 300 mg capsule cap 08/17/21 olanzapine 10 mg tablet tablet 08/17/21 prazosin 2 mg capsule cap 08/17/21 venlafaxine 150 mg cap PO 08/17/21 capsule,extended release 24 hr Allergies Allergy/AdvReac Type Severity Reaction Status Date / Time Contrast Media Allergy Intermediate Swelling Uncoded 09/01/21 19:48 Review of Systems Review of Systems: All systems reviewed & are unremarkable except as noted in HPI and below Constitutional: Constitutional: Denies chills, Denies fatigue and Denies fever(s) Cardiovascular: Cardiovascular: Denies chest pain and Denies radiating jaw, neck or arm pain Gastrointestinal: Gastrointestinal: Reports abdominal pain, Denies diarrhea, Reports nausea and Reports vomiting Genitourinary: Genitourinary: Denies dysuria and Reports urinary frequency Comments: Positive flank pain PMFSH Past Medical History Medical History (Updated 09/27/21 @ 21:56 by Ulises Parmar MD) Anxiety Kidney stone Pancreatitis Surgical History Surgical History (Updated 09/27/21 @ 21:53 by Ulises Parmar MD) History of lithotripsy Social History Social History Smoking status: Never smoker Alcohol intake: former Substance use: current Substance use type: marijuana Gender identity (if verbalized by the patient): Male Spiritual care concerns: No Exam Narrative: GENERAL: Well-appearing, well-nourished, and in no acute distress. HEAD: Normocephalic, atraumatic. CHEST: Clear to auscultation. No respiratory distress. HEART: Regular rate and rhythm. Normal peripheral pulses. ABDOMEN: Soft, nontender, nondistended. No reproducible CVA tenderness EXTREMITIES: Normal range of motion. No edema. SKIN: Warm, dry, no rash. NEURO: Alert and oriented x3. PSYCH: Normal mood and affect. Course Course Emergency Course: Patient feels improved with medication. White count elevated but he seems to have chronic elevation. Renal function normal CT scan without obstructive stone. Discharge home. MDM - Abdominal Pain Lab Data Result diagrams: 09/27/21 21:12 09/27/21 21:12 Labs: Lab Results 09/27/21 09/27/21 Range/Units 21:12 21:12 WBC 12.8 H (4.5-10.0) K/mm3 RBC 5.18 (4.6-6.20) M/mm3 Hgb 15.9 (14.0-18.0) g/dL Hct 46.4 (42.0-52.0) % MCV 89.6 (80-100) fl MCH 30.7 (26-34) pg MCHC 34.3 (32-36) g/dl RDW 14.6 H (11.5-14.5) % Plt Count 175 (150-375) k/mm3 MPV 10.9 H (7.4-10.4) fl Immature Gran % (Auto) 0.4 (0-0.5) % Neut % (Auto) 90.1 H (45.5-73.1) % Lymph % (Auto) 6.2 L (18.3-44.2) % [place] % (Auto) 3.0 (2.6-8.5) % Eos % (Auto) 0.1 (0-4.4) % Baso % (Auto) 0.2 (0.2-1.2) % Lymph # (Auto) 0.79 L (0.9-3.2) K/mm3 [place] # (Auto) 0.4 (0.1-0.6) K/mm3 Eos # (Auto) 0.0 (0-0.3) K/mm3 Baso # (Auto) 0.0 (0.0-0.1) K/mm3 Abs Immat Gran (auto) 0.05 H (0.00-0.031) K/mm3 Absolute Neuts (auto) 11.5 H (1.3-6.7) K/mm3 Absolute Nucleated RBC 0.0 (0.0-0.012) K/mm3 Nucleated RBC % 0.0 (0.0-0.2) % Sodium 140 (137-145) mmol/L Potassium 4.1 (3.4-5.0) mmol/L Chloride 106
--- NOTE | 2021-09-27 22:22 | PC.NURSE ---
Prior to discharge patient states to this RN I wasn't completely honest with you earlier about wanting to kill myself . Patient states that he feels his medications need to be adjusted as he has been having increasing suicidal thoughts over the past few weeks. He states that on his birthday a few days ago he planned to cut his wrists with a knife. He states I didn't go through with it . Patient reports that he spoke with a counselor at [facility] who instructed him to the ER. Patient is calm and cooperative with this RN. ED Charge Nurse made aware and patient changed into paper scrubs. All belongings secured and patient relocated to room 14 after room safety check completed. Sitter present.
[2021-09-27 23:05] LABS: Appearance Urine Clear (Clear); Bilirubin Urine 1+ (Negative); Blood Urine Negative (Negative); Color Urine Yellow (Yellow); Glucose Urine UA Negative (Negative); Ketones Urine Trace mg/dL (Negative); Leukocyte Esterase Ur Trace LEU/UL (Negative); Nitrate Urine Negative (Negative); Protein Urine Trace mg/dL (Negative); Specific Grav Ur 1.025 (1.001-1.035)
[2021-09-27 23:11] LABS: Ethanol < 10 mg/dL (<10)
--- NOTE | 2021-09-27 23:17 | PC.NURSE ---
Patient report given to ZUHAIR Massey. All questions answered and care of patient transferred.
[2021-09-27 23:19] LABS: Amphetamine Screen Urine Negative (Negative); Bacteria Urine Trace /hpf; Barbiturate Screen Urine Negative (Negative); Benzodiazepines Screen Urine Positive (Negative); Calcium Oxalate Crystals Urine Present /hpf; Cannabinoid Screen Urine Positive (Negative); Cocaine Screen Urine Negative (Negative); Methadone Screen Urine Negative (Negative); Mucus Urine Heavy /lpf; Opiate Screen Urine Positive (Negative); Phencyclidine Screen Urine Negative (Negative); Squamous Epithelial Cell Urine Rare /hpf (Few)
[2021-09-27 23:20] LABS: Add Urine Microscopic? YES
--- NOTE | 2021-09-27 23:48 | ED.ABDPAIN ---
HPI - Abdominal Pain General Chief Complaint: Abdominal Pain Stated Complaint: right flank pain n/v Time Seen by Provider: 09/27/21 20:25 History of Present Illness HPI narrative: Pt is signed out to myself by Dr Parmar, presented to ED for flank pain and concern he was experiencing renal colic, as he has hx of renal stones. He was evaluated and treated by Dr Parmar and his work up revealed a non obstructing stone with some bacteriuria without dysuria, a culture will be completed. At discharge, pt advised Dr Parmar that he is suicidal. He does not endorse a plan at this time but reports he plans to harm himself if he leaves here today. A sitter was placed at and toxicology work up for psychiatric evaluation is in progress. Related Data Home Medications Medication Instructions Recorded Confirmed fluoxetine 40 mg capsule (Prozac) 80 mg PO AC 06/04/19 06/23/20 amlodipine 5 mg tablet tablet 08/17/21 08/17/21 gabapentin 300 mg capsule cap 08/17/21 olanzapine 10 mg tablet tablet 08/17/21 prazosin 2 mg capsule cap 08/17/21 venlafaxine 150 mg cap PO 08/17/21 capsule,extended release 24 hr Allergies Allergy/AdvReac Type Severity Reaction Status Date / Time Contrast Media Allergy Intermediate Swelling Uncoded 09/01/21 19:48 Review of Systems Gastrointestinal: Comments: refer to HPI Psychiatric: Comments: refer to HPI [facility] Past Medical History Medical History (Updated 09/27/21 @ 21:56 by Ulises Parmar MD) Anxiety Kidney stone Pancreatitis Surgical History Surgical History (Updated 09/27/21 @ 21:53 by Ulises Parmar MD) History of lithotripsy Social History Social History Smoking status: Never smoker Alcohol intake: former Substance use: current Substance use type: unknown Gender identity (if verbalized by the patient): Male Spiritual care concerns: No Exam Const: General: no acute distress and alert Other: Pt is heavily tattooed. He is cooperative. Pleasant. in NAD HENMT: Head: normal to inspection General nose exam: Normal external nose present Eyes: Conjunctivae: conjunctivae normal EOM: EOMs intact bilaterally Neck: Neck: normal visual inspection, no lymphadenopathy and no meningeal signs Resp: Effort & Inspection: normal respiratory effort Cardio: Rate: regular rate GI: Auscultation: normal bowel sounds : General: Yes bladder normal to palpation and Yes no CVA tenderness Back/Spine/Pelvis: Back: no CVA tenderness Skin: General skin exam: normal color Neuro: General: patient oriented x3, moves all extremities, no meningeal signs, no focal motor deficits and CN's II-XI intact bilaterally Cranial nerves: Yes Nystagmus not present Psych: Mental Status: mental status grossly normal Affect: normal affect Attitude: cooperative Course Course Emergency Course: pt is medically cleared for psychiatric evaluation. Pt is updated. Sitter remains at BS. spud driller Rut has paged couselor, eval pending. MDM - Abdominal Pain Lab Data Result diagrams: 09/27/21 21:12 09/27/21 21:12 Labs: Lab Results 09/27/21 09/27/21 09/27/21 Range/Units 21:12 21:12 21:12 WBC 12.8 H (4.5-10.0) K/mm3 RBC 5.18 (4.6-6.20) M/mm3 Hgb 15.9 (14.0-18.0) g/dL Hct 46.4 (42.0-52.0) % MCV 89.6 (80-100) fl MCH 30.7 (26-34) pg MCHC 34.3 (32-36) g/dl RDW 14.6 H (11.5-14.5) % Plt Count 175 (150-375) k/mm3 MPV 10.9 H (7.4-10.4) fl Immature Gran % (Auto) 0.4 (0-0.5) % Neut % (Auto) 90.1 H (45.5-73.1) % Lymph % (Auto) 6.2 L (18.3-44.2) % [place] % (Auto) 3.0 (2.6-8.5) % Eos % (Auto) 0.1 (0-4.4) % Baso % (Auto) 0.2 (0.2-1.2) % Lymph # (Auto) 0.79 L (0.9-3.2) K/mm3 [place] # (Auto) 0.4 (0.1-0.6) K/mm3 Eos # (Auto) 0.0 (0-0.3) K/mm3 Baso # (Auto) 0.0 (0.0-0.1) K/mm3 Abs Immat Gran (auto) 0.05 H
[2021-09-28 00:08] LABS: SARS-CoV-2 RNA PCR Negative
[2021-09-28] MEDS: LORazepam (*CRX) 0.5 MG TABLET PO (00:20)
[2021-09-28 05:09] VITALS: BP 137/84; PULSE 67; RESP 18; O2SAT 99
== END 2021-09-28 05:15 | disposition home or self-care (01) ==
PROVIDERS: Emergency Medicine; Emergency Provider Emergency Medicine; PCP Internal Medicine
DX: R10.11 Right upper quadrant pain (principal); Z20.822 Contact with and (suspected) exposure to COVID-19; Z87.442 Personal history of urinary calculi; F41.9 Anxiety disorder, unspecified; N20.0 Calculus of kidney; K76.0 Fatty (change of) liver, not elsewhere classified
CPT/HCPCS: 36415; 74176; 80048; 80307; 81001; 84443; 85025; 87086; 87088; 96361; 96374; 96375; 99284; A9270; C9803; J2270; J2405; J7030; U0003; U0005

== ENCOUNTER 2021-10-24 10:44 | Emergency (ER) | payer OTHER, SELFPAY ==
--- NOTE | ~2021-10-24 | XR_ITS ---
EXAM: XR abdomen/kub 1V DATE: 10/24/2021 14:25 HISTORY: kidney stone RIGHT . COMPARISON: 08/06/2020. CT abdomen pelvis 10/24/2021. FINDINGS: Clear lung bases. Cholecystectomy clips. Normal bowel gas pattern. Enlarged liver and sple en. Stable right UPJ/proximal ureteral stone. Enthesopathy versus dystrophic calcification at the rig ht greater trochanter. IMPRESSION: Stable right UPJ/proximal ureteral stone. Hepatosplenomegaly. Reviewed, dictated and finalized at location K.
--- NOTE | ~2021-10-24 | CT_ITS ---
EXAMINATION: CT abdomen pelvis wo con DATE: 10/24/2021 12:58 INDICATION: Right abdominal pain. TECHNIQUE: Computed tomography (CT) of the abdomen and pelvis was performed without intravenous contr ast. Automated exposure control and iterative reconstruction technique were employed. The dose-length product was 362.29 mGy-cm. COMPARISON: CT abdomen and pelvis 09/27/2021 FINDINGS: The visualized portions of the lung bases demonstrate minimal atelectasis. No pleural effus ion. The heart size is normal. No pericardial effusion. There is diffuse hepatic steatosis. There are changes of cholecystectomy. The spleen, pancreas, and adrenal glands are normal. There is mild right hydronephrosis. There is an 8 mm stone in proximal right ureter. Left kidney is normal. There is a r ight inguinal hernia containing fat. There are changes of appendectomy. There are no dilated loops of bowel. There are no pathologically enlarged lymph nodes. There is no free intraperitoneal fluid. The re is mild thoracolumbar spondylosis. IMPRESSION: 1. 8 mm stone in the proximal right ureter with mild right hydronephrosis. Reviewed, dictated and finalized at location A.
[2021-10-24 11:22] VITALS: BP 172/113; PULSE 61; RESP 18; TEMP 36.8; O2SAT 99
[2021-10-24 11:46] LABS: Appearance Urine Clear (Clear); Bilirubin Urine 1+ (Negative); Blood Urine 2+ (Negative); Color Urine Yellow (Yellow); Glucose Urine UA Negative (Negative); Ketones Urine Trace mg/dL (Negative); Leukocyte Esterase Ur Negative LEU/UL (Negative); Nitrate Urine Negative (Negative); Protein Urine 2+ mg/dL (Negative); Specific Grav Ur >= 1.030 (1.001-1.035)
[2021-10-24 11:55] LABS: Mucus Urine Rare /lpf; Squamous Epithelial Cell Urine Rare /hpf (Few); WBC Urine 16-20 /hpf
[2021-10-24 11:56] LABS: Add Urine Microscopic? YES
[2021-10-24 12:22] LABS: Basophils Percent Auto 0.2 % (0.2-1.2); Eosinophils Percent Auto 0.3 % (0-4.4); Hematocrit 48.8 % (42.0-52.0); Hemoglobin 16.9 g/dL (14.0-18.0); Immature Granulocyte Absolute 0.02 K/mm3 (0.00-0.031); Immature Granulocyte Percent A 0.2 % (0-0.5); Lymphocytes Absolute Auto 1.16 K/mm3 (0.9-3.2); Lymphocytes Percent Auto 12.3 % (18.3-44.2); Mean Corpuscular HGB Conc 34.6 g/dl (32-36); Mean Corpuscular Hemoglobin 31.1 pg (26-34); Mean Corpuscular Volume 89.7 fl (80-100); Monocytes Absolute Auto 0.9 K/mm3 (0.1-0.6); Monocytes Percent Auto 9.6 % (2.6-8.5); Neutrophils Absolute Auto 7.3 K/mm3 (1.3-6.7); Neutrophils Percent Auto 77.4 % (45.5-73.1); Platelet Count Result 147 k/mm3 (150-375); Red Blood Count 5.44 M/mm3 (4.6-6.20); Red Cell Distribution Width 14.5 % (11.5-14.5); White Blood Count 9.4 K/mm3 (4.5-10.0)
--- NOTE | 2021-10-24 12:33 | ECG_ITS ---
Measurements Intervals [place] Rate: 53 P: -7 SC: 151 QRS: 70 QRSD: 93 T: 76 QT: 469 QTc: 444 Interpretive Statements SINUS BRADYCARDIA BASELINE ARTIFACT- I, II, III, AVR, AVL, AVF BORDERLINE ECG COMPARED TO ECG 05/12/2021 00:58:20 SINUS BRADYCARDIA NOW PRESENT Electronically Signed On 10-24-2021 14:02:36 CDT by Arthur Peña D.O.
[2021-10-24 12:34] LABS: Alanine Aminotransferase 101 U/L (6-50); Albumin Level 4.5 g/dL (3.5-5.1); Alkaline Phosphatase 36 U/L (38-126); Anion Gap 12 mmol/L (8-16); Aspartate Amino Transferase 57 U/L (17-59); Bilirubin,Total 0.5 mg/dL (0.2-1.3); Blood Urea Nitrogen 12 mg/dL (9-20); Calcium 8.9 mg/dL (8.4-10.2); Carbon Dioxide 25 mmol/L (22-30); Chloride 104 mmol/L (98-107); Estimated CRCL calculation 92 ml/min; Estimated Glomerular Filt Rate > 60; Glucose 139 mg/dL (65-110); Lipase 176 U/L (23-300); Potassium 3.5 mmol/L (3.4-5.0); Sodium 141 mmol/L (137-145)
--- NOTE | 2021-10-24 12:37 | ED.ABDPAIN ---
HPI - Abdominal Pain General Chief Complaint: Abdominal Pain Stated Complaint: R. sided abd pain Time Seen by Provider: 10/24/21 12:12 History of Present Illness HPI narrative: Pt presents with several complaints. Pt has abdominal pain and flank pain. Pt says he has 9mm kidney stone and it sometimes causes him pain. Pt is nauseated as well. Pt also complains of chest pain that has been going on since yesterday. Pt also ahd suicidal idation last week and thought about cutting himself. 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 Pt sees [place]. Pt says [employer] works for his pain. Related Data Home Medications Medication Instructions Recorded Confirmed fluoxetine 40 mg capsule (Prozac) 80 mg PO AC 06/04/19 06/23/20 amlodipine 5 mg tablet tablet 08/17/21 08/17/21 gabapentin 300 mg capsule cap 08/17/21 olanzapine 10 mg tablet tablet 08/17/21 prazosin 2 mg capsule cap 08/17/21 venlafaxine 150 mg cap PO 08/17/21 capsule,extended release 24 hr Allergies Allergy/AdvReac Type Severity Reaction Status Date / Time Contrast Media Allergy Intermediate Swelling Uncoded 10/24/21 12:44 Review of Systems Review of Systems: All systems reviewed & are unremarkable except as noted in HPI and below PMFSH Past Medical History Medical History (Updated 10/24/21 @ 16:17 by Giana Callaway III, DO) Anxiety Kidney stone Pancreatitis Surgical History Surgical History (Updated 09/27/21 @ 21:53 by Ulises Parmar MD) History of lithotripsy Social History Social History Smoking status: Never smoker Alcohol intake: former Substance use: current Substance use type: unknown Gender identity (if verbalized by the patient): Male Spiritual care concerns: No Exam Const: General: healthy appearing and no acute distress Nutritional Appearance: well nourished Orientation/consciousness: patient oriented x3 Limitations: no limitations Neck: Neck: normal visual inspection, no lymphadenopathy and no meningeal signs Chest: Chest palpation & inspection: normal inspection of the chest Resp: Effort & Inspection: normal respiratory effort Auscultation: clear to auscultation bilaterally Cardio: Rate: regular rate Rhythm: regular rhythm GI: GI Palp: Yes Soft to palpation Auscultation: normal bowel sounds Back/Spine/Pelvis: Back: CVA tenderness Skin: General skin exam: normal color Rashes: no rashes Wounds: no wounds Neuro: General: patient oriented x3 Cranial nerves: Yes Nystagmus not present Speech: normal speech Extrem: General: normal to inspection Psych: Mental Status: mental status grossly normal Affect: normal affect Attitude: cooperative Course Course Emergency Course: pt talked with urology and won't get lithotripsy until Sunday. Pt wants to try to go home on oral pain meds and follow up Vital Signs Vital signs: Vital Signs Temperature 98.3 F 10/24/21 11:22 Pulse Rate 61 10/24/21 11:22 Respiratory Rate 18 10/24/21 11:22 Blood Pressure 172/113 H 10/24/21 11:22 Pulse Oximetry 99 10/24/21 11:22 Oxygen Delivery Room Air 10/24/21 11:22 Temperature 98.3 F 10/24/21 11:22 Pulse Rate 71 10/24/21 14:07 Respiratory Rate 18 10/24/21 14:07 Blood Pressure 149/99 H 10/24/21 14:07 Pulse Oximetry 96 10/24/21 14:07 Oxygen Delivery Room Air 10/24/21 11:22 MDM - Abdominal Pain Lab Data Result diagrams: 10/24/21 12:15 10/24/21 12:15 Labs: Lab Results 10/24/21 10/24/21 10/24/21 Range/Units 11:40 12:11 12:15 WBC 9.4 (4.5-10.0) K/mm3 RBC 5.44 (4.6-6.20) M/mm3 Hgb 16.9 (14.0-18.0) g/dL Hct 48.8 (42.0-52.0) % MCV 89.7 (80-100) fl MCH 31.1 (26-34) pg MCHC 34.6 (32-36) g/dl RDW 14.5 (11.5-14.5) % Plt Count 147 L (150-375) k/mm3 MPV 11.0 H (7.4-10.4) fl Immature Gran % (Auto) 0.2 (0-0.5) % Neut
[2021-10-24] MEDS: ONDANSETRON INJ 4 MG/2 ML VIAL IV PUSH (12:42)
--- NOTE | 2021-10-24 12:53 | PC.NURSE ---
Patient respiratory rate and heart rate are under normal limits so Dr Callaway advised to hold hydromorphone at this time
[2021-10-24 13:18] LABS: Troponin I < 0.012 ng/mL (0.000-0.034)
[2021-10-24] MEDS: HYDROmorphone HCL INJ (*CRX) 1 MG/ML SYR IV PUSH (14:06)
[2021-10-24 14:07] VITALS: BP 149/99; PULSE 71; RESP 18; O2SAT 96
--- NOTE | 2021-10-24 15:03 | PC.NURSE ---
Patient gave verbal consent to speak with mother about his condition.
[2021-10-24 15:12] LABS: SARS-CoV-2 RNA PCR Positive
[2021-10-24 16:38] LABS: Troponin I < 0.012 ng/mL (0.000-0.034)
--- NOTE | 2021-10-24 19:10 | WPDURCON ---
Assessment and Plan Assessment and plan (1) Ureterolithiasis: Code(s): N20.1 - Calculus of ureter Status: Acute Assessment and Plan: We discussed a stent placement for pain control or discharge with Flomax and pain medication then plan to do a right ESWL later this week. He agrees to be discharged home with pain medications and flomax and proceed with an ESWL later this week. He understands that he cannot have any NSAID's for the rest of the week and denies taking any in the past 2-3 days. His pain is improved at this time and he declines an admission for pain control or a stent placement. Urology Consult Note HPI Date Seen: 10/24/21 Time Seen: 16:00 Primary Care Provider: Je Yadav MD Consult Narrative Reason for consult: Ureteral Stone Narrative: Brodie Torres is a 36 year old male who presented to the ER today with acute onset of right flank pain that radiates to the RLQ, accompanied by nausea, vomiting, frequency, urgency and pelvic pressure. This began 2-3 days ago and has worsened. He has known about his right renal stone for some time and states that it does cause him pain intermittently but not like this. His WBc is 9.4, creatinine is 1.10 and UA is negative but a urine culture is pending at this time. His CT scan today shows an 8mm proximal right ureteral stone in the UPJ with mild hydronephrosis. His stone is visible on KUB. The patient also states that he is suicidal to the ER doctor but has not admitted this during our examination and conversation, although he is on suicide precaution and has a sitter with him at the bedside. In comparison to a previous CT scan on 09/27/21 his stone was in the right renal pelvis. He states prior to this stone he has no history of recurrent stones and has never had urologic surgery or chronic UTI's. Review of Systems Cardiovascular: Cardiovascular: Denies chest pain Respiratory: Respiratory: Reports no additional respiratory complaints Gastrointestinal: Gastrointestinal: Reports abdominal pain, Reports nausea and Reports vomiting Genitourinary: Genitourinary: Denies hematuria, Denies dysuria, Reports flank pain, Reports urinary frequency and Reports urinary urgency PMFSH Past Medical History Medical History Anxiety Kidney stone Pancreatitis Surgical History Surgical History History of lithotripsy Social History Social History Smoking status: Never smoker Alcohol intake: former Substance use: current Substance use type: unknown Gender identity (if verbalized by the patient): Male Spiritual care concerns: No Meds Home Medications and Allergies Home Medications Medication Instructions Recorded Confirmed Type famotidine 20 mg tablet (Pepcid) 20 mg PO DAILY #14 tabs 06/04/19 06/23/20 Rx fluoxetine 40 mg capsule (Prozac) 80 mg PO AC 06/04/19 06/23/20 History clonidine 0.2 mg/24 hr weekly 1 patch transdermal WEEKLY #4 ea 06/23/20 Rx transdermal patch tamsulosin 0.4 mg capsule 0.4 mg PO DAILY #30 caps 06/23/20 Rx ondansetron 4 mg disintegrating 4 mg PO Q8H PRN nausea and 03/11/21 Rx tablet vomiting #10 tabs promethazine 25 mg tablet 25 mg PO Q6H PRN nausea and 05/12/21 Rx vomiting #14 tabs amlodipine 5 mg tablet tablet 08/17/21 08/17/21 History gabapentin 300 mg capsule cap 08/17/21 History olanzapine 10 mg tablet tablet 08/17/21 History prazosin 2 mg capsule cap 08/17/21 History venlafaxine 150 mg cap PO 08/17/21 History capsule,extended release 24 hr hydrocodone 5 mg-acetaminophen 325 1 tablet PO Q6H PRN pain #14 tabs 10/24/21 Rx mg tablet ondansetron 4 mg disintegrating 4 mg PO Q8H PRN nausea and 10/24/21 Rx tablet vomiting #10 tabs Allergies Allergy/AdvReac Type Severity Reaction Status Date / Time Contrast Media Allergy Inter
== END 2021-10-24 16:37 | disposition home or self-care (01) ==
PROVIDERS: Emergency Provider Emergency Medicine; PCP Internal Medicine
DX: N13.2 Hydronephrosis with renal and ureteral calculous obstruction (principal); R07.89 Other chest pain; Z20.822 Contact with and (suspected) exposure to COVID-19; F41.9 Anxiety disorder, unspecified; Z87.442 Personal history of urinary calculi; R00.1 Bradycardia, unspecified; R16.2 Hepatomegaly with splenomegaly, not elsewhere classified
CPT/HCPCS: 36415; 74018; 74176; 80053; 81001; 83690; 84484; 85025; 87086; 93005; 96374; 96375; 99284; C9803; J1170; J2405; U0003; U0005

== ENCOUNTER 2021-10-25 17:57 | Emergency (ER) | payer OTHER, SELFPAY ==
[2021-10-25 18:04] VITALS: BP 161/70; PULSE 85; RESP 18; TEMP 36.7; O2SAT 96
--- NOTE | 2021-10-25 18:28 | PC.NURSE ---
PT LEAVING TO GO TO ANOTHER FACILITY. AWARE THAT HE IS COVID +. IV WAS REMOVED PRIOR TO PT LEAVING
== END 2021-10-25 18:28 | disposition left against medical advice (07) ==
PROVIDERS: PCP Internal Medicine
DX: N20.0 Calculus of kidney (principal); U07.1 COVID-19
CPT/HCPCS: 99199

== ENCOUNTER 2022-01-04 21:13 | Emergency (ER) | payer OTHER, SELFPAY ==
[2022-01-04 21:17] VITALS: BP 146/106; PULSE 87; RESP 16; TEMP 37.3; O2SAT 95
--- NOTE | 2022-01-04 22:21 | PC.NURSE ---
LWBS Triaged. IV d/c with drsg applied.
== END 2022-01-04 22:21 | disposition left against medical advice (07) ==
LOC: ANHED 22:39
PROVIDERS: PCP Internal Medicine
DX: R11.2 Nausea with vomiting, unspecified (principal)
CPT/HCPCS: 99199